=== PATIENT | male | born 1940 | race Caucasian/White ===

== ENCOUNTER 2017-12-27 12:48 | Day surgery (SDC) | payer OTHER, BC ==
[2017-12-26 12:59] LABS: Urine Appearance CLEAR; Urine Blood NEGATIVE (NEG); Urine Color DK YELLOW; Urine Glucose NEGATIVE (NEG); Urine Protein TRACE (NEG)
[2017-12-26 13:11] LABS: Potassium 4.3 mEq/L (3.6-5.0)
[2017-12-26 13:38] LABS: Protime INR 0.99
[2017-12-26 13:42] LABS: Urine Bilirubin 1+ (NEG); Urine Microscopic Reflex ORDER UMIC
[2017-12-26 13:43] LABS: Urine Bacteria <20 /HPF (NONE SEEN); Urine RBC <5 /HPF (NONE SEEN)
[2017-12-26 13:44] LABS: Urine Culture Reflex Order NOT NEEDED; Urine Mucus 2+ /HPF (NONE SEEN)
--- NOTE | 2017-12-26 13:49 | RAD REPORT ---
EXAM DESCRIPTION: RAD - Chest Pa And Lat (2 Views) - 12/26/2017 1:38 pm CLINICAL HISTORY: Shortness of breath COMPARISON: 06/29/2015 FINDINGS: Diffuse COPD pattern is noted. Fullness in the left hilar region appears unchanged. The he art is normal in size. No displaced fractures. IMPRESSION: Prominent COPD.
[2017-12-26 14:02] LABS: Absolute Lymphocytes (CBC) 2.8 K/uL (0.7-4.9); Absolute Monocytes 1.1 K/uL (0.1-1.3); Absolute Neutrophil 6.3 K/uL (1.8-8.0); Basophils % 0.7 % (0-1.3); Eosinophils % 1.7 % (0-4.4); Hematocrit 48.2 % (39.6-49.0); Lymphocytes % 26.5 % (15.3-44.8); MCH 31.7 pg (27.0-35.0); MCV 96.2 fL (80-100); MPV 8.3 fL (7.6-11.3); Monocytes % 10.8 % (3.3-12.3); RBC Red Blood Cell Count 5.01 M/uL (4.33-5.43)
[2017-12-27] MEDS ORDERED: Ringers Lactate 1,000 ML IV ONE ×2 (12:51→15:59)
[2017-12-27] MEDS ORDERED: GENTAMICIN 80 MG/100 ML BAG 80 MG/100 ML BAG IV ONE (12:53)
[2017-12-27] MEDS ORDERED: mitoMYcin 40 MG in WATER FOR INJ,STERILE 50 ML IV ONE (14:00)
[2017-12-27] MEDS ORDERED: FENTANYL CITR 100 MCG/2 ML ONE ×2 (15:07→16:09)
[2017-12-27] MEDS ORDERED: LIDOCAINE 2% MPF 5 ML VIAL ONE (15:07)
[2017-12-27] MEDS ORDERED: PROPOFOL 200 MG/20 ML VIAL IV ONE (15:07)
[2017-12-27 16:43] VITALS: TEMP 97.5
[2017-12-27] MEDS: MIDAZOLAM HCL 2 MG/2 ML INJ ONE ×2 (16:48→16:54)
[2017-12-27] MEDS ORDERED: MIDAZOLAM HCL 2 MG/2 ML INJ ONE (16:48)
[2017-12-27] MEDS ORDERED: OXYBUTYNIN CHLORIDE 5 MG TAB ONE (17:14)
[2017-12-27 17:41] VITALS: O2SAT 96
[2017-12-27 17:50] VITALS: BP 150/82
== END 2017-12-27 18:38 | disposition home or self-care (01) ==
LOC: OR 12:48
PROVIDERS: ATTEND Urology
PROC: 3E0K8GC Introduction of Other Therapeutic Substance into Genitourinary Tract, Via Natural or Artificial Opening Endoscopic (ICD-10-PCS; 2017-12-27)
PROC: 0TBB8ZX Excision of Bladder, Via Natural or Artificial Opening Endoscopic, Diagnostic (ICD-10-PCS; principal; 2017-12-27 14:00)
DX: C67.9 Malignant neoplasm of bladder, unspecified (principal); I10 Essential (primary) hypertension; E78.5 Hyperlipidemia, unspecified; E78.6 Lipoprotein deficiency; J43.9 Emphysema, unspecified; J44.9 Chronic obstructive pulmonary disease, unspecified; F17.210 Nicotine dependence, cigarettes, uncomplicated; Z82.3 Family history of stroke
CPT/HCPCS: 36415; 51720; 52240; 71046; 80048; 85025; 85610; 85730; 86850; 86900; 86901; 87086; 87088; 88305; 88307; J1580; J2250 ×2; J3010 ×2; J9280; 81003; 81015

== ENCOUNTER 2018-05-14 14:23 | Observation (INO) | payer OTHER, BC ==
[2018-05-14] MEDS ORDERED: ALBUTEROL 2.5 MG/3 ML NEB SOL ONE (15:32)
[2018-05-14 15:39] LABS: Absolute Lymphocytes (CBC) 0.5 K/uL (0.7-4.9); Absolute Monocytes 0.6 K/uL (0.1-1.3); Absolute Neutrophil 2.4 K/uL (1.8-8.0); Basophils % 1.4 % (0-1.3); Eosinophils % 3.9 % (0-4.4); Lymphocytes % 12.8 % (15.3-44.8); MCH 33.2 pg (27.0-35.0); MCV 97.5 fL (80-100); MPV 7.6 fL (7.6-11.3); Monocytes % 16.3 % (3.3-12.3); RBC Red Blood Cell Count 4.21 M/uL (4.33-5.43)
--- NOTE | 2018-05-14 15:41 | RAD REPORT ---
EXAM DESCRIPTION: RAD - Chest Single View - 05/14/2018 3:36 pm CLINICAL HISTORY: SOB Chest pain. COMPARISON: Chest Pa And Lat (2 Views) dated 12/26/2017; CHEST PA AND LAT 2 VIEW dated 06/29/2015; CHES T PA AND LAT 2 VIEW dated 03/19/2014; CHEST PA AND LAT 2 VIEW dated 05/08/2013 FINDINGS: Portable technique limits examination quality. Prominent emphysematous changes are present throughout the lungs. The heart is normal in size. No dis placed fractures. IMPRESSION: COPD.
[2018-05-14 16:04] LABS: Protime INR 1.03
[2018-05-14 16:08] LABS: ALT/SGPT 16 U/L (12-78); AST/SGOT 13 U/L (15-37); Albumin 3.2 g/dL (3.4-5.0); Alkaline Phosphatase 64 U/L (45-117); BUN Blood Urea Nitrogen 13 mg/dL (7-18); Bicarbonate 26 mmol/L (21-32); Bilirubin Direct 0.2 mg/dL (0-0.2); Bilirubin Total 0.6 mg/dL (0.2-1.0); Creatine Phosphokinase 32 U/L (39-308); Glucose Level 93 mg/dL (74-106); Lipase 77 U/L (73-393); NT PRO-BNP 253 pg/mL (<450); Potassium 4.1 mmol/L (3.5-5.1); Protein, Total 6.6 g/dL (6.4-8.2); Sodium Level 135 mmol/L (136-145); Troponin (Emerg Dept Use Only) < 0.02 ng/mL (0.0-0.045)
[2018-05-14 17:08] LABS: Urine Blood NEGATIVE (NEG); Urine Glucose NEGATIVE (NEG); Urine Protein TRACE (NEG); Urine Specific Gravity 1.015 (1.005-1.030); Urine pH 6.5 (5.0-7.0)
[2018-05-14] MEDS ORDERED: NA CHLORIDE 0.9% 500 ML ONE (17:19)
[2018-05-14 17:27] LABS: Urine Bacteria <20 /HPF (NONE SEEN); Urine Culture Reflex Order NOT NEEDED; Urine Mucus 2+ /HPF (NONE SEEN); Urine RBC <5 /HPF (NONE SEEN); Urine Sperm PRESENT (NONE SEEN)
[2018-05-14] MEDS ORDERED: ASPIRIN 81 MG CHEWABLE TABLET ONE (17:28)
[2018-05-14] MEDS ORDERED: METOPROLOL TAR 50 MG TAB ONE (17:39)
--- NOTE | 2018-05-14 17:56 | ER ---
Nurse's Notes [facility] Name: Roly Clifton Age: 77 yrs Sex: Male : 1940 Arrival Date: 05/14/2018 Time: 14:26 Bed 6 Private MD: Diagnosis: Shortness of Breath;Atrial fibrillation w/ RVR Presentation: 05/14 14:38 Presenting complaint: Patient states: was sent by Dr. Weaver for COPD exacerbation, iw pt has had difficulty breathing, and was in Afib RVR with no hx, pt has hx of lung cancer, on chemo and radiation. Transition of care: patient was not received from another setting of care. Onset of symptoms was May 14, 2018. Risk Assessment: Do you want to hurt yourself or someone else? Patient reports no desire to harm self or others. Initial Sepsis Screen: Does the patient meet any 2 criteria? No. Patient's initial sepsis screen is negative. Does the patient have a suspected source of infection? No. Patient's initial sepsis screen is negative. Care prior to arrival: None. 14:38 Method Of Arrival: Wheelchair iw 14:38 Acuity: MASON 2 iw 20:11 Note pt refused oxygen for transport to [facility]. pt ambulated to restroom in [facility] with no ak1 assistance, steady gait and no resp distress noted. family was at bedside with pt. Triage Assessment: 19:36 General: Appears in no apparent distress. Respiratory: Reports shortness of breath ak1 Onset: The symptoms/episode began/occurred at an unknown time. the patient has mild shortness of breath. Historical: - Allergies: 14:44 NKA; iw - Home Meds: 14:44 2 inhalers [Active]; iw - PMHx: 14:44 lung cancer; COPD; bladder cancer; iw - PSHx: 14:44 bladder cancer removal; iw - Immunization history:: Adult Immunizations. - Social history:: Smoking status: Patient uses tobacco products, denies chronic smoking, but will smoke occasionally. - Ebola Screening: : Patient negative for fever greater than or equal to 101.5 degrees Fahrenheit, and additional compatible Ebola Virus Disease symptoms Patient denies exposure to infectious person Patient denies travel to an Ebola-affected area in the 21 days before illness onset No symptoms or risks identified at this time. - Family history:: not pertinent. - Hospitalizations: : No recent hospitalization is reported. Screenin:34 Abuse screen: Denies threats or abuse. Denies injuries from another. Nutritional ak1 screening: No deficits noted. Tuberculosis screening: No symptoms or risk factors identified. Fall Risk None identified. Assessment: 14:50 General: Appears uncomfortable, Behavior is calm, cooperative, Denies fever, feeling ss ill, fatigue, chills. Pain: Denies pain. Neuro: Level of Consciousness is awake, alert, obeys commands, Oriented to person, place, time, situation, Brick [employer] Tile Making Machine Operator are equal bilaterally Speech is normal, Facial symmetry appears normal. Respiratory: Reports shortness of breath at rest, but worst on exertion x "a few days" Airway is patent Respiratory effort is even, pursed lip, Respiratory pattern is regular, symmetrical, placed patient on 2L O2 VIA NC for comfort. Breath sounds are clear in right upper lobe, left upper lobe, left posterior upper lobe, right posterior upper lobe and right posterior middle lobe Breath sounds are diminished in left posterior lower lobe and right posterior lower lobe. GI: Patient currently denies abdominal pain, diarrhea, nausea, vomiting. EENT: Nares are clear Oral mucosa is moist. Derm: Skin is intact, is thin, Skin is dry, Skin is normal. Musculoskeletal: No signs and/or symptoms reported regarding the musculoskeletal system. Circulation, motion, and sensation intact. Range of motion: intact in all extremities. 15:45 Reassessment: Patient appears in no apparent distress at this time. Pt states, "this ss oxygen is irritating me, take it off." DC'd NC as requested by patient. Daughter remains at bedside Patient states feeling better. Patient states symptoms have improved. 17:23 Reassessment: Patient appears in no apparent distress at this time. patient reports he ss is feeling much better, and even thought Dr. Licea is wanting to admit him overnight for inpatient admission, patient still insist that he wants to go home AMA. Pt verbalizes understanding risks of leaving AMA. Daughter at bedside who states that she will talk to patient. NS bolus infusing at this time and Dr. Licea reports that he will attempt to call Dr. Shirley to schedule appointment at least for patient. 18:00 Reassessment: After discussing need for admission with daughter, patient agrees to stay.ss 19:34 Reassessment: pt refuses to keep oxygen on. pt eating at bedside. pt and family ak1 informed of bed assignment and wait for transfer upstairs. no resp distress noted at this time. will continue to monitor. . General: Appears in no apparent distress. Behavior is agitated. Pain: Denies pain. Neuro: Level of Consciousness is awake, alert, obeys commands, Oriented to person, place, time, situation, Brick And Tile Making Machine Operator are equal bilaterally Moves all extremities. Gait is steady, Speech is normal. Cardiovascular: Rhythm is regular. Respiratory: Airway is patent Respiratory effort is even, unlabored, Breath sounds are clear. GI: No signs and/or symptoms were reported involving the gastrointestinal system. : No signs and/or symptoms were reported regarding the genitourinary system. EENT: No signs and/or symptoms were reported regarding the EENT system. Derm: No signs and/or symptoms reported regarding the dermatologic system. Musculoskeletal: No signs and/or symptoms reported regarding the musculoskeletal system. Vital Signs: 14:41 BP 95 / 79; Pulse 118; Resp 24 S; Pulse Ox 98% on R/A; Weight 85.73 kg; Height 6 ft. 3 iw in. (190.50 cm); Pain 3/10; 16:07 BP 110 / 82; Pulse 83; Resp 22; Pulse Ox 99% ; sv 16:58 BP 106 / 94; Pulse 107; Resp 24; Pulse Ox 100% ; sv 17:23 Temp 98.0(O); ss 19:56 BP 109 / 71; Pulse 77; Resp 18 S; Pulse Ox 99% on R/A; bb 14:41 Body Mass Index 23.62 (85.73 kg, 190.50 cm) ED Course: 14:26 Patient arrived in ED. iw 14:33 EKG done, by internetworking technician. reviewed by Thierry Song MD. at1 14:34 Missed attempt(s): 20 gauge in right forearm. em1 14:40 Tigre Licea MD is Attending Physician. wa 14:41 Triage completed. iw 14:41 Arm band placed on. iw 15:21 XRAY CXR (1 view) In Process Unspecified. EDMS 15:25 Nicolette Go, BECKIE is Primary Nurse. ss 17:54 Tigre Licea MD is Hospitalizing Provider. wa 17:54 Aida Grace MD is Hospitalizing Provider. wa 19:36 Patient has correct armband on for positive identification. Placed in gown. Bed in low ak1 position. Call light in reach. Side rails up X 1. Adult w/ patient. human resources professional on. Pulse ox on. NIBP on. 19:46 No provider procedures requiring assistance completed. Patient admitted, IV remains in ak1 place. Administered Medications: 15:27 Drug: Albuterol 1.25 mg Route: Inhalation; 17:19 Drug: NS 0.9% 500 ml Route: IV; Rate: bolus; Site: left forearm; ss 19:37 Follow up: IV Status: Completed infusion ak1 17:23 Drug: Aspirin Chewable Tablet 324 mg Route: PO; ss 19:37 Follow up: Response: No adverse reaction ak1 18:08 Drug: Metoprolol TARTRATE (Lopressor) 50 mg {Note: Dr. Licea notified of VS 101/62 HR ss 112, okay to go ahead and give medication.} Route: PO; 19:37 Follow up: Response: No adverse reaction ak1 Outcome: 17:55 Decision to Hospitalize by Provider. wa 19:46 Condition: stable ak1 19:46 Instructed on the need for admit. 19:56 Admitted to Tele accompanied by tech, via stretcher, room 406, with chart, Report bb called to Lizy BUTTS 20:12 Patient left the ED. ak1 Signatures: Dispatcher [employer] Annelise Chacko, RN Jackie Gunter RN Tresa Langley, Brown Gusman RN em1 Nicolette Go RN RN Bonnie Otto, dray truck driver EKG Tat1 Ariana Barragan RN RN ak1 Tigre Licea MD MD ak
--- NOTE | 2018-05-14 17:56 | EDPHYS ---
Physician Documentation [facility] Name: Roly Clifton Age: 77 yrs Sex: Male : 1940 Arrival Date: 05/14/2018 Time: 14:26 Bed 6 Private MD: ED Physician Tigre Licea HPI: 05/14 17:23 This 77 yrs old Male presents to ER via Wheelchair with complaints of wa Breathing Difficulty. 17:23 The patient has shortness of breath at rest. Onset: The symptoms/episode began/occurred wa 2 day(s) ago. Duration: The symptoms are continuous, and are steadily getting worse. The patient's shortness of breath is aggravated by exertion, is alleviated by nothing. Associated signs and symptoms: Pertinent negatives: chest pain, productive cough, hemoptysis, loss of consciousness. Severity of symptoms: At their worst the symptoms were moderate in the emergency department the symptoms are unchanged. The patient has experienced similar episodes in the past, several times. The patient has been recently seen by a physician: his oncologist. h/o COPD and lung CA. seen by his oncologist today. c/o worsening SOB. noted in Afib. no h/o afib in the past. Historical: - Allergies: 14:44 NKA; iw - Home Meds: 14:44 2 inhalers [Active]; iw - PMHx: 14:44 lung cancer; COPD; bladder cancer; iw - PSHx: 14:44 bladder cancer removal; iw - Immunization history:: Adult Immunizations. - Social history:: Smoking status: Patient uses tobacco products, denies chronic smoking, but will smoke occasionally. - Ebola Screening: : Patient negative for fever greater than or equal to 101.5 degrees Fahrenheit, and additional compatible Ebola Virus Disease symptoms Patient denies exposure to infectious person Patient denies travel to an Ebola-affected area in the 21 days before illness onset No symptoms or risks identified at this time. - Family history:: not pertinent. - Hospitalizations: : No recent hospitalization is reported. ROS: 17:25 Constitutional: Negative for fever, chills, and weight loss, Eyes: Negative for injury, wa pain, redness, and discharge, ENT: Negative for injury, pain, and discharge, Neck: Negative for injury, pain, and swelling, Abdomen/GI: Negative for abdominal pain, nausea, vomiting, diarrhea, and constipation, Back: Negative for injury and pain, : Negative for injury, bleeding, discharge, and swelling, MS/Extremity: Negative for injury and deformity, Skin: Negative for injury, rash, and discoloration, Neuro: Negative for headache, weakness, numbness, tingling, and seizure, Psych: Negative for depression, anxiety, suicide ideation, homicidal ideation, and hallucinations. 17:25 Cardiovascular: Negative for chest pain, edema, orthopnea, palpitations, paroxysmal nocturnal dyspnea. 17:25 Respiratory: Positive for shortness of breath, on exertion. wheezing, Negative for cough, hemoptysis. Exam: 17:25 Constitutional: This is a well developed, well nourished patient who is awake, alert, wa and in no acute distress. Head/Face: Normocephalic, atraumatic. Eyes: Pupils equal round and reactive to light, extra-ocular motions intact. Lids and lashes normal. Conjunctiva and sclera are non-icteric and not injected. Cornea within normal limits. Periorbital areas with no swelling, redness, or edema. ENT: Nares patent. No nasal discharge, no septal abnormalities noted. Tympanic membranes are normal and external auditory canals are clear. Oropharynx with no redness, swelling, or masses, exudates, or evidence of obstruction, uvula midline. Mucous membranes moist. Neck: Trachea midline, no thyromegaly or masses palpated, and no cervical lymphadenopathy. Supple, full range of motion without nuchal rigidity, or vertebral point tenderness. No Meningismus. Chest/axilla: Normal chest wall appearance and motion. Nontender with no deformity. No lesions are appreciated. Abdomen/GI: Soft, non-tender, with normal bowel sounds. No distension or tympany. No guarding or rebound. No evidence of tenderness throughout. Back: No spinal tenderness. No costovertebral tenderness. Full range of motion. Skin: Warm, dry with normal turgor. Normal color with no rashes, no lesions, and no evidence of cellulitis. MS/ Extremity: Pulses equal, no cyanosis. Neurovascular intact. Full, normal range of motion. Neuro: Awake and alert, GCS 15, oriented to person, place, time, and situation. Cranial nerves II-XII grossly intact. Motor strength 5/5 in all extremities. Sensory grossly intact. Cerebellar exam normal. Normal gait. Psych: Awake, alert, with orientation to person, place and time. Behavior, mood, and affect are within normal limits. 17:25 Cardiovascular: Rate: tachycardic, Rhythm: irregularly irregular, Pulses: no pulse deficits are appreciated, Heart sounds: normal, Edema: is not appreciated, JVD: is not appreciated. 17:25 ECG was reviewed by the Attending Physician. 17:25 Respiratory: the patient does not display signs of respiratory distress, Respirations: pursed lip breathing, Breath sounds: wheezing: inspiratory expiratory is heard diffusely, Respiratory rate: tachypneic Vital Signs: 14:41 BP 95 / 79; Pulse 118; Resp 24 S; Pulse Ox 98% on R/A; Weight 85.73 kg; Height 6 ft. 3 iw in. (190.50 cm); Pain 3/10; 16:07 BP 110 / 82; Pulse 83; Resp 22; Pulse Ox 99% ; sv 16:58 BP 106 / 94; Pulse 107; Resp 24; Pulse Ox 100% ; sv 17:23 Temp 98.0(O); ss 19:56 BP 109 / 71; Pulse 77; Resp 18 S; Pulse Ox 99% on R/A; bb 14:41 Body Mass Index 23.62 (85.73 kg, 190.50 cm) iw MDM: 14:40 Patient medically screened. wa 17:27 Differential diagnosis: Anemia Anxiety Reaction Bronchitis CHF exacerbation, Chronic wa Obstructive Pulmonary Disease Myocardial Infarction pneumonia, pulmonary edema, Unstable Angina a fib RVR. COPD exaxcerbation. will work up. will consult cardiology. 17:28 Data reviewed: vital signs, nurses notes, lab test result(s), EKG, radiologic studies. wa Test interpretation: by ED physician or midlevel provider: EKG: HR 113. A fib RVR. 17:29 Test interpretation: by ED physician or midlevel provider:. wa 17:30 Test interpretation: by ED physician or midlevel provider: mild leukopenia. CXR noted wa for COPD.. Response to treatment: the patient's symptoms have markedly improved after treatment, breathing improved with neb. HR still 99-115, A fib RVR. will try mild hydration via IV. metoprolol. ASA. need admit for cardiology eval. pt adamant and would rather sign AMA. daughter at bedside. Risks and benefits of AMA explained and accepted by this pt with capacity, and as a result, I will. 17:53 Physician consultation: Aida Grace MD. Admission orders: after a detailed discussion az of the patient's condition and case, the admit orders are written by me. ED course: family talked pt into admission. will admit. will consult cardiology. 17:56 Test interpretation: by ED physician or midlevel provider: EKG: HR 113. noted flutter wa with variable block. 05/14 14:59 Order name: Blood Culture Adult (2) 05/14 14:59 Order name: BMP; Complete Time: 17:05/14 14:59 Order name: CBC with Diff; Complete Time: 15:51 05/14 14:59 Order name: CPK; Complete Time: :05/14 14:59 Order name: Hepatic Function; Complete Time: 17:05/14 14:59 Order name: Lipase; Complete Time: 17:05/14 14:59 Order name: XRAY CXR (1 view); Complete Time: 15:51 05/14 14:59 Order name: Magnesium; Complete Time: 17:05/14 14:59 Order name: NT PRO-BNP; Complete Time: 17:05/14 14:59 Order name: PT-INR; Complete Time: 17:05/14 14:59 Order name: Ptt, Activated; Complete Time: 17:05/14 14:59 Order name: Troponin (emerg Dept Use Only); Complete Time: 17:05/14 16:44 Order name: Urine Microscopic Only; Complete Time: 17:05/14 16:45 Order name: Urine Dipstick--Ancillary (enter results); Complete Time: 17: 05/14 14:59 Order name: EKG; Complete Time: 15:00 05/14 14:59 Order name: Cardiac monitoring; Complete Time: 16:05/14 14:59 Order name: EKG - Nurse/Tech; Complete Time: 16:28 05/14 14:59 Order name: IV Saline Lock; Complete Time: 16:05/14 14:59 Order name: Labs collected and sent; Complete Time: 16:05/14 14:59 Order name: O2 Per Protocol; Complete Time: 16:29 wa 05/14 14:59 Order name: O2 Sat Monitoring; Complete Time: 16:29 az 05/14 14:59 Order name: Urine Dipstick-Ancillary (obtain specimen); Complete Time: 17:11 az Administered Medications: 15:27 Drug: Albuterol 1.25 mg Route: Inhalation; sv 17:19 Drug: NS 0.9% 500 ml Route: IV; Rate: bolus; Site: left forearm; ss 19:37 Follow up: IV Status: Completed infusion ak1 17:23 Drug: Aspirin Chewable Tablet 324 mg Route: PO; ss 19:37 Follow up: Response: No adverse reaction ak1 18:08 Drug: Metoprolol TARTRATE (Lopressor) 50 mg {Note: Dr. Licea notified of VS 101/62 HR ss 112, okay to go ahead and give medication.} Route: PO; 19:37 Follow up: Response: No adverse reaction ak1 Disposition: 05/14/18 17:55 Hospitalization ordered by Aida Grace for Inpatient Admission. Preliminary diagnosis are Shortness of Breath, Atrial fibrillation w/ RVR. - Bed requested for Telemetry/MedSurg (Inpatient). - Status is Inpatient Admission. ak1 - Condition is Stable. - Problem is new. - Symptoms have improved. UTI on Admission? No Signatures: Dispatcher [employer] EDMS Annelise Torres, RN Kandi Martínez RN BECKIE Tresa Velasquez, BECKIE BUTTS Nicolette Go RN RN ss Krenek, Amber, RN RN [facility] Tigre Licea MD MD az Corrections: (The following items were deleted from the chart) 19:09 17:55 Hospitalization Ordered by Aida Grace MD for Inpatient Admission. Preliminary diagnosis is Shortness of Breath; Atrial fibrillation w/ RVR. Bed requested for Telemetry/MedSurg (Inpatient). Status is Inpatient Admission. Condition is Stable. Problem is new. Symptoms have improved. UTI on Admission? No. az 20:12 19:09 05/14/2018 17:55 Hospitalization Ordered by Aida Grace MD for Inpatient ak1 Admission. Preliminary diagnosis is Shortness of Breath; Atrial fibrillation w/ RVR. Bed requested for Telemetry/MedSurg (Inpatient). Status is Inpatient Admission. Condition is Stable. Problem is new. Symptoms have improved. UTI on Admission? No. dw
[2018-05-14] MEDS ORDERED: IPRATROPIUM BROM 0.5MG/2.5ML NEB PRN (18:23)
[2018-05-14] MEDS ORDERED: ACETAMINOPHEN 500 MG TAB PO PRN (18:23)
[2018-05-14] MEDS ORDERED: LEVALBUTEROL 0.63 MG/3 ML NEB NEB PRN (18:23)
[2018-05-14] MEDS ORDERED: METOPROLOL TARTRATE 5 MG/5 ML INJ IV PRN (18:23)
--- NOTE | 2018-05-14 19:24 | EKG ---
Test Date: 2018-05-14 Test Time: 14:27:57 District Traffic Chief: LASHANDA MEASUREMENT RESULTS: Intervals: Rate: 113 [place]: QRSD: 98 QT: 302 QTc: 414 [place]: P: IL: QRS: -44 T: 70 INTERPRETIVE STATEMENTS: Atrial flutter with variable AV block Left axis deviation Incomplete right bundle branch block Abnormal ECG Compared to ECG 12/07/2017 16:47:27 Sinus rhythm no longer present Atrial premature complex(es) no longer present Electronically Signed On 05-14-18 19:22:43 CDT by Norbert Jose
[2018-05-14 21:08] VITALS: BMI 21.8
[2018-05-14] MEDS: ENOXAPARIN 40 MG/0.4 ML SQ SCH (21:22)
[2018-05-14] MEDS: NA CHLORIDE 0.9% 1,000 ML IV SCH (21:22)
[2018-05-14] MEDS: ONDANSETRON 4 MG/2 ML VIAL IV PRN (21:23)
--- NOTE | 2018-05-15 00:06 | P.HP ---
Certification for Inpatient Patient admitted to: Inpatient With expected LOS: >2 Midnights Practitioner: I am a practitioner with admitting privileges, knowledge of patient current condition, hospital course, and medical plan of care. Services: Services provided to patient in accordance with Admission requirements found in Title 42 Section 412.3 of the Code of Federal Regulations Patient History Date of Service: 05/15/18 Reason for admission: The onset atrial fibrillation History of Present Illness: Mr Clifton is a 77-year-old male with history of COPD, lung cancer, hypertension , wound note is increase in shortness of breath since 3 days ago. He went to see his oncologist, Dr Tompkins, who found him to be on atrial fibrillation which is a new diagnosis for the patient. Mr. Clifton then was referred to ER for farther evaluation. He denied any fever or chills. He also denied chest pain, palpitation or dizziness. At arrival his blood pressure was 95/79, HR 118 bpm, O2 sat 98% on RA, T 98* F. EKG shows atrial flutter with variable AV block, with incomplete right bundle branch block. At my encounter the patient was significantly nauseated, symptom which started today. Allergies No Known Allergies Allergy (Verified 12/26/17 13:10) Home medications list reviewed: Yes Home Medications: Albuterol Inhaler [Ventolin Inhaler] 2 puff IH BID 12/26/17 - Past Medical/Surgical History Diabetic: No -: COPD -: Lung Cancer -: Bladder Cancer -: Spot in the Brain -: Bladder tumor removal - Family History Father -: Hypertension, Stroke - Social History Smoking Status: Current some day smoker Alcohol use: No CD- Drugs: No Caffeine use: Yes Place of Residence: Home Review of Systems 10-point ROS is otherwise unremarkable Physical Examination - Vital Signs Temperature: 97.3 F Blood Pressure: 118/69 Pulse: 76 Respirations: 20 Pulse Ox (%): 98 - Physical Exam General: Alert, In no apparent distress HEENT: Atraumatic, PERRLA, Mucous membr. moist/pink, EOMI, Sclerae nonicteric Neck: Supple, 2+ carotid pulse no bruit, No LAD, Without JVD or thyroid abnormality Respiratory: Diminished, Expiratory wheezes Cardiovascular: Normal S1 S2, Irregular heart rate/rhythm Gastrointestinal: Normal bowel sounds, No tenderness Musculoskeletal: No tenderness Integumentary: No rashes Neurological: Normal speech, Normal strength at 5/5 x4 extr, Normal tone, Normal affect Lymphatics: No axilla or inguinal lymphadenopathy - Studies Laboratory Data (last 24 hrs) 05/14/18 15:20: PT 12.1, INR 1.03, APTT 24.9 05/14/18 15:20: WBC 3.7 L, Hgb 14.0, Hct 41.0, Plt Count 213 05/14/18 15:20: Sodium 135 L, Potassium 4.1, BUN 13, Creatinine 0.80, Glucose 93 , Magnesium 2.0, Total Bilirubin 0.6, AST 13 L, ALT 16, Alkaline Phosphatase 64 , Lipase 77 Assessment and Plan - Plan Assessment: 1. New onset atrial flutter 2. COPD 3. Lung cancer Plan: Will admit the patient for rate control, will continue with beta-blockers, will order echocardiogram, consult Cardiology. He will need anticoagulation upon discharge. - Advance Directives Does patient have a Living Will: Yes Does patient have a Durable POA for Healthcare: Yes - Code Status/Comfort Care Code Status Assessed: Yes Code Status: Full Code
[2018-05-15] MEDS: ONDANSETRON 4 MG/2 ML VIAL IV PRN (02:13)
[2018-05-15] MEDS ORDERED: PANTOPRAZOLE 40MG TABLET PO ONE (04:04)
[2018-05-15] MEDS: NA CHLORIDE 0.9% 1,000 ML IV SCH (04:10)
[2018-05-15] MEDS ORDERED: PROMETHAZINE 25 MG/ML VIAL IV PRN (04:22)
[2018-05-15] MEDS: CALCIUM CARBONATE CHEW 500MG TAB PO PRN ×5 (04:30→10:29)
[2018-05-15 04:41] LABS: Absolute Lymphocytes (CBC) 0.4 K/uL (0.7-4.9); Absolute Monocytes 0.6 K/uL (0.1-1.3); Absolute Neutrophil 2.2 K/uL (1.8-8.0); Basophils % 1.4 % (0-1.3); Eosinophils % 4.2 % (0-4.4); Hematocrit 38.4 % (39.6-49.0); Lymphocytes % 12.9 % (15.3-44.8); MCV 97.7 fL (80-100); MPV 7.9 fL (7.6-11.3); Monocytes % 16.4 % (3.3-12.3); RBC Red Blood Cell Count 3.94 M/uL (4.33-5.43)
[2018-05-15 05:04] LABS: ALT/SGPT 15 U/L (12-78); AST/SGOT 11 U/L (15-37); Albumin 2.9 g/dL (3.4-5.0); Alkaline Phosphatase 59 U/L (45-117); BUN Blood Urea Nitrogen 13 mg/dL (7-18); Bicarbonate 29 mmol/L (21-32); Bilirubin Total 0.4 mg/dL (0.2-1.0); Glucose Level 91 mg/dL (74-106); Magnesium 1.9 mg/dL (1.8-2.4); Phosphorus 2.8 mg/dL (2.5-4.9); Potassium 4.3 mmol/L (3.5-5.1); Protein, Total 6.1 g/dL (6.4-8.2); Sodium Level 137 mmol/L (136-145)
[2018-05-15 05:59] LABS: Blood Morphology Comment NOT SEEN (NOT SEEN); Platelet Estimate ADEQ; Urine White Blood Cell Casts OK
[2018-05-15] MEDS: ENOXAPARIN 40 MG/0.4 ML SQ SCH (09:24)
[2018-05-15] MEDS ORDERED: SODIUM CHLORIDE 0.9% 10ML INJ IV PRN (09:28)
[2018-05-15] MEDS ORDERED: BENZONATATE 100 MG CAP PO PRN (10:19)
[2018-05-15] MEDS ORDERED: CALCIUM CARBONATE CHEW 500MG TAB PO PRN (10:32)
--- NOTE | 2018-05-15 11:02 | RAD REPORT ---
EXAM DESCRIPTION: CT - Chest For Pe Angio - 05/15/2018 10:44 am CLINICAL HISTORY: Shortness of breath COMPARISON: October 2017 TECHNIQUE: Dynamically enhanced axial 3 mm thick images of the chest were obtained during administra tion of <100> mL Isovue 370 IV contrast. Coronal and oblique reconstruction images were generated and reviewed. Exam utilizes a protocol for optimal evaluation of pulmonary arterial tree. Maximum intensity projections 3D imaging was utilized All CT scans are performed using dose optimization technique as appropriate and may include automated exposure control or mA/KV adjustment according to patient size. FINDINGS: A pulmonary embolus is not seen. A thoracic aortic aneurysm is not noted. A pleural effusion is not seen. A pericardial effusion is not seen. The previously described spiculated 2.4 centimeter mass within the left upper lobe has mostly resolve d. COPD is again demonstrated No significant mediastinal or hilar lymphadenopathy is displayed IMPRESSION: Negative for a pulmonary embolism.
[2018-05-15] MEDS: METOPROLOL TAR 50 MG TAB PO SCH ×2 (15:23→23:03)
--- NOTE | 2018-05-15 15:42 | ECHO ---
HEIGHT: 6 ft 3 in WEIGHT: 174 lb 9.6 oz DATE OF STUDY: 05/15/[address]: Norbert Jose MD 2-DIMENSIONAL: YES M.MODE: YES DOPPLER: YES COLOR FLOW: YES TDS: YES PORTABLE: NO DEFINITY: NO BUBBLE STUDY: NO DIAGNOSIS: ATRIAL FIBRILLATION CARDIAC HISTORY: CATHERIZATION: NO SURGERY: NO PROSTHETIC VALVE: NO PACEMAKER: NO MEASUREMENTS (cm) DIASTOLIC (NORMALS) SYSTOLIC (NORMALS) IVSd 1.5 (0.6-1.2) LA Diam 4.5 (1.9-4.0) LVEF 52% LVIDd 3.8 (3.5-5.7) LVIDs 2.8 (2.0-3.5) %FS 26% LVPWd 1.4 (0.6-1.2) Ao Diam 2.8 (2.0-3.7) 2 DIMENSIONAL ASSESSMENT: RIGHT ATRIUM: NORMAL LEFT ATRIUM: DILATED RIGHT VENTRICLE: NORMAL LEFT VENTRICLE: NORMAL TRICUSPID VALVE: NORMAL MITRAL VALVE: NORMAL PULMONIC VALVE: NORMAL AORTIC VALVE: NORMAL PERICARDIAL EFFUSION: NONE AORTIC ROOT: NORMAL LEFT VENTRICULAR WALL MOTION: NORMAL DOPPLER/COLOR FLOW: MILD TRICUSPID REGURGITATION. COMMENTS: TECHNICALLY DIFFICULT STUDY. GROSSLY NORMAL LEFT VENTRICULAR EJECTION FRACTION AND SIZE. DILATED LEFT ATRIUM. NO THROMBUS. TECHNOLOGIST: Ashwin PECK
--- NOTE | 2018-05-15 16:38 | P.PN ---
Subjective Date of Service: 05/15/18 Primary Care Provider: Dr. Garcia; Oncology-Dr. Weaver Chief Complaint: onset atrial fibrillation Subjective: Improving Physical Examination - Vital Signs Temperature: 99.4 F Blood Pressure: 157/71 Pulse: 102 Respirations: 20 Pulse Ox (%): 96 - Physical Exam General: Alert, In no apparent distress, Oriented x3, Cooperative HEENT: Atraumatic Neck: Supple Respiratory: Clear to auscultation bilaterally, Normal air movement Cardiovascular: Irregular heart rate/rhythm (Atrial fibrillation) Gastrointestinal: Normal bowel sounds, Soft and benign, Non-distended, No tenderness, No masses, No rebound, No guarding Musculoskeletal: No erythema, No tenderness, No warmth Neurological: Normal speech, Normal strength at 5/5 x4 extr, Normal tone, Normal affect - Studies Medications List Reviewed: Yes Assessment & Plan Discharge Plan: Home Plan to discharge in: 48 Hours Physician Review Additional Text: Impression: Shortness of breath likely COPD exacerbation New onset atrial fibrillation History lung cancer Plan: Will start COPD medication. Patient seemed to be is responding well. CT scan reviewed. COPD changes noted. 2.4 cm mass to the left upper lobe previously seen no longer present. Will discuss with patient. Patient with new onset atrial fibrillation. Cardiology consulted. Echocardiogram unremarkable. Will start beta-tate therapy. Await further recommendations from cardiology. Patient on anti coagulation therapy. Patient will likely need chronic anti coagulation therapy discharge. Will reassess tomorrow. Time Spent Managing Pts Care (In Minutes): 55
[2018-05-15] MEDS: ARFORMOTEROL TARTRATE 15 MCG/2 ML VIAL.NEB NEB SCH (19:42)
[2018-05-15] MEDS: predniSONE 20 MG TAB PO SCH (21:06)
[2018-05-15] MEDS: PANTOPRAZOLE 40 MG INJ IVP SCH (21:06)
[2018-05-15] MEDS: ENOXAPARIN 80 MG/0.8 ML SQ SCH (21:06)
[2018-05-16 04:41] LABS: Absolute Lymphocytes (CBC) 0.3 K/uL (0.7-4.9); Absolute Monocytes 0.4 K/uL (0.1-1.3); Absolute Neutrophil 3.1 K/uL (1.8-8.0); Basophils % 0.8 % (0-1.3); Eosinophils % 0.2 % (0-4.4); Hematocrit 35.7 % (39.6-49.0); Lymphocytes % 8.8 % (15.3-44.8); MCH 33.7 pg (27.0-35.0); MCV 97.3 fL (80-100); MPV 7.9 fL (7.6-11.3); Monocytes % 9.3 % (3.3-12.3); RBC Red Blood Cell Count 3.67 M/uL (4.33-5.43)
[2018-05-16 04:49] LABS: BUN Blood Urea Nitrogen 8 mg/dL (7-18); Bicarbonate 29 mmol/L (21-32); Glucose Level 95 mg/dL (74-106); Potassium 4.2 mmol/L (3.5-5.1); Sodium Level 137 mmol/L (136-145)
[2018-05-16] MEDS: ARFORMOTEROL TARTRATE 15 MCG/2 ML VIAL.NEB NEB SCH (08:50)
[2018-05-16] MEDS: METOPROLOL TAR 50 MG TAB PO SCH (09:25)
[2018-05-16] MEDS: ENOXAPARIN 80 MG/0.8 ML SQ SCH (09:25)
[2018-05-16] MEDS: predniSONE 20 MG TAB PO SCH (09:25)
[2018-05-16] MEDS: PANTOPRAZOLE 40 MG INJ IVP SCH (09:25)
--- NOTE | 2018-05-16 09:25 | P.DS ---
Admission Date: 05/14/18 Discharge Date: 05/16/18 Primary Care Provider: Dr. Garcia; Oncology-Dr. Weaver Disposition: ROUTINE DISCHARGE Discharge Condition: GOOD Reason for Admission: onset atrial fibrillation Consultations: Cardiology-Dr. Jose Procedures: CT scan: COMPARISON: October 2017 TECHNIQUE: Dynamically enhanced axial 3 mm thick images of the chest were obtained during administration of <100> mL Isovue 370 IV contrast. Coronal and oblique reconstruction images were generated and reviewed. Exam utilizes a protocol for optimal evaluation of pulmonary arterial tree. Maximum intensity projections 3D imaging was utilized All CT scans are performed using dose optimization technique as appropriate and may include automated exposure control or mA/KV adjustment according to patient size. FINDINGS: A pulmonary embolus is not seen. A thoracic aortic aneurysm is not noted. A pleural effusion is not seen. A pericardial effusion is not seen. The previously described spiculated 2.4 centimeter mass within the left upper lobe has mostly resolved. COPD is again demonstrated No significant mediastinal or hilar lymphadenopathy is displayed IMPRESSION: Negative for a pulmonary embolism. ECHO: EF 52% Medical Problem List: Shortness of breath secondary to COPD exacerbation New onset Atrial fibrillation with RVR, now rate controlled and will be on chronic anticoagulation GERD History of Lung cancer with brain metastasis, Current CT scan of chest shows almost complete resolution of left upper lobe lung mass. Brief History of Present Illness: 77 yo CM presented to the ER with shortness of breath. He was found to be in atrial fibrillation with RVR. He also had COPD exacerbation. He was admitted for treatment. Hospital Course: Patient presented with shortness of breath and found to have atrial fibrillation with RVR. He was placed on medication including a beta tate and anticoagulation. He was also treated for COPD. He responded well with therapy. His rate improved but he was still in atrial fibrillation. ECHO showed normal EF of 52%. CT scan showed no pulmonary embolus. CT also showed improvement of 2.4 cm spiculated mass to the left upper lobe. It has almost completely resolved. He has Lung cancer and recently finished with radiation. He is seen by Oncology. He has a history of Brain metastasis. He is to have an MRI of the brain later today as outpatient. At discharge for his COPD, he will continue with Prednisone 20 mg one pill twice daily for 5 days then one pill daily for 5 days. He will also be given Symbicort 160 mcg 2 puffs BID and Proair HFA 2 puffs three times a day as needed for shortness of breath. He will need to follow up with Pulmonary as an outpatient to monitor his progress. For his new onset atrial fibrillation, at discharge he will continue with Metoprolol 50 mg one pill twice daily. He will also start chronic anticoagulation therapy-Eliquis 5 mg one pill twice daily. He will be given a coupon for this. He will need to follow up with Cardiology in one week to monitor his progress and to further address. He has history of Lung cancer with recent radiation therapy. He also has history of brain metastasis. He will have an outpatient MRI of the brain later today. He will follow up with Oncology within one week to further address. Patient may have underlying GERD. He will continue with Protonix 40 mg one pill daily. Vital Signs/Physical Exam: Temp Pulse Resp BP Pulse Ox 98.1 F 81 20 136/73 97 05/16/18 04:00 05/16/18 04:00 05/16/18 04:00 05/16/18 04:00 05/16/18 04:00 General: Alert, In no apparent distress, Oriented x3 HEENT: Atraumatic Neck: Supple Respiratory: Clear to auscultation bilaterally, Normal air movement Cardiovascular: Irregular heart rate/rhythm (atrial fibrillation, rate controlled.) Gastrointestinal: Normal bowel sounds, Soft and benign, Non-distended, No rebound, No guarding Integumentary: No erythema, No warmth, No cyanosis Neurological: Normal speech, Normal strength at 5/5 x4 extr, Normal tone, Normal affect Laboratory Data at Discharge: WBC 3.8 K/uL (4.3-10.9) L 05/16/18 03:33 Hgb 12.4 g/dL (13.6-17.9) L 05/16/18 03:33 Hct 35.7 % (39.6-49.0) L 05/16/18 03:33 Plt Count 213 K/uL (152-406) 05/16/18 03:33 PT 12.1 SECONDS (9.5-12.5) 05/14/18 15:20 INR 1.03 05/14/18 15:20 APTT 24.9 SECONDS (24.3-36.9) 05/14/18 15:20 Sodium 137 mmol/L (136-145) 05/16/18 03:33 Potassium 4.2 mmol/L (3.5-5.1) 05/16/18 03:33 BUN 8 mg/dL (7-18) 05/16/18 03:33 Creatinine 0.80 mg/dL (0.55-1.3) 05/16/18 03:33 Glucose 95 mg/dL (74-106) 05/16/18 03:33 Phosphorus 2.8 mg/dL (2.5-4.9) 05/15/18 04:03 Magnesium 2.0 mg/dL (1.8-2.4) 05/16/18 03:33 Total Bilirubin 0.4 mg/dL (0.2-1.0) 05/15/18 04:03 AST 11 U/L (15-37) L 05/15/18 04:03 ALT 15 U/L (12-78) 05/15/18 04:03 Alkaline Phosphatase 59 U/L (45-117) 05/15/18 04:03 Lipase 77 U/L (73-393) 05/14/18 15:20 Home Medications: Albuterol Inhaler [Ventolin Inhaler] 2 puff IH BID 12/26/17 Patient Discharge Instructions: 1. Patient will need to follow up with his PCP in one week to follow up this hospitalization. 2. Patient presented with shortness of breath and found to have atrial fibrillation with RVR. He was placed on medication including a beta tate and anticoagulation. He was also treated for COPD exacerbation. He responded well with therapy. His rate improved but he was still in atrial fibrillation. ECHO showed normal EF of 52%. CT scan showed no pulmonary embolus. CT also showed improvement of 2.4 cm spiculated mass to the left upper lobe. It has almost completely resolved. He has Lung cancer and recently finished with radiation. He is seen by Oncology. He has a history of Brain metastasis as well. He is to have an MRI of the brain later today as outpatient. 3. At discharge for his COPD, he will continue with Prednisone 20 mg one pill twice daily for 5 days then one pill daily for 5 days. He will also be given Symbicort 160 mcg 2 puffs BID and Proair HFA 2 puffs three times a day as needed for shortness of breath. He will need to follow up with Pulmonary as an outpatient to monitor his progress. 4. For his new onset atrial fibrillation, at discharge he will continue with Metoprolol 50 mg one pill twice daily. He will also start chronic anticoagulation therapy- Eliquis 5 mg one pill twice daily. He will be given a coupon for this. He will need to follow up with Cardiology in one week to monitor his progress and to further address. 5. He has history of Lung cancer with recent radiation therapy. He also has history of brain metastasis. He will have an outpatient MRI of the brain later today. He will follow up with Oncology within one week to further address. 6. Patient may have underlying GERD. He will continue with Protonix 40 mg one pill daily. Diet: AHA Activity: Fall precautions Time spent managing pt's care (in minutes): 55
[2018-05-16 12:17] VITALS: BP 113/65; TEMP 98.9
[2018-05-16 15:16] VITALS: O2SAT 94
--- NOTE | 2018-05-17 07:00 | CON ---
Date of Consultation: 05/15/2018 Reason For Consultation: Atrial fibrillation. History Of Present Illness: Mr. Clifton is a 77-year-old male with history of dyslipidemia, hypertens ion, COPD, history of lung cancer and bladder cancer. He takes multiple inhalers at home, aspirin, L ipitor, Norvasc. Came in with shortness of breath, was found to have atrial fibrillation with rapid ventricular response. This, so far, has actually improved with a normal heart rate, but still in atr ial fibrillation. The patient now is asymptomatic. He has some discomfort that is midepigastric, ra diating to the back with some nausea. No PND, orthopnea, pedal edema, or syncope. He did have some palpitations and shortness of breath. Past Medical History: As stated above. Allergies: NONE. Review of Systems: Negative. Social History: Negative. Family History: Negative. Medications: As listed earlier. Physical Examination: General: No acute distress, atrial fibrillation, rate of 80. HEENT: Negative. Neck: Supple without any bruit, lymphadenopathy, JVD, or thyromegaly. Chest: Clear to auscultation and percussion. Cardiac: Atrial fibrillation. No murmurs, gallops, or rubs. Abdomen: Benign. Extremities: No clubbing, cyanosis, or edema. Diagnostic Data: Except for the atrial fibrillation was fairly unremarkable. Impression And Plan: 1.New onset atrial fibrillation. 2.Hypertension. 3.Dyslipidemia. 4.Chronic obstructive pulmonary disease. 5.History of lung and bladder cancer. Mr. Clifton needs an echocardiogram, that is already pending. I think we need to add beta-tate to his regimen for now. I think he should be anticoagulated with Xarelto or Eliquis. He should probabl y have an outpatient stress test. I would like to see him in the office in the next 2 weeks. Does n ot see what the echocardiogram shows first. He can certainly go home on a beta-tate and an antico agulant and then we will decide on further therapy regarding his atrial fibrillation later. His bloo d pressure and dyslipidemia and COPD are well controlled. WILDER/SHAYAN Voice ID: [id number] Report ID: [id number]
--- NOTE | 2018-05-18 07:00 | EKG ---
Test Date: 2018-05-16 Test Time: 07:33:48 Suspender Maker: IMTIAZ MEASUREMENT RESULTS: Intervals: Rate: 82 ME: QRSD: 120 QT: 368 QTc: 429 [place]: P: -57 ME: QRS: -36 T: 66 INTERPRETIVE STATEMENTS: Atrial flutter with 4:1 AV conduction Left axis deviation Nonspecific intraventricular conduction delay Abnormal ECG Compared to ECG 05/14/2018 14:27:57 Intraventricular conduction delay now present Incomplete right bundle-branch block no longer present Electronically Signed On 05-18-18 06:55:59 CDT by Norbert Jose
== END 2018-05-16 10:25 | disposition home or self-care (01) ==
LOC: ER 14:23 → INTOOBSV 18:04 → ERHOLD 18:04 → 4TH 19:20
PROVIDERS: ADMIT Family Medicine; ATTEND Internal Medicine
DX: I48.91 Unspecified atrial fibrillation (principal); J44.1 Chronic obstructive pulmonary disease with (acute) exacerbation; I10 Essential (primary) hypertension; C34.90 Malignant neoplasm of unspecified part of unspecified bronchus or lung; Z85.51 Personal history of malignant neoplasm of bladder; F17.210 Nicotine dependence, cigarettes, uncomplicated; Z85.841 Personal history of malignant neoplasm of brain
CPT/HCPCS: 36415 ×2; 71045; 71275; 80048 ×2; 80053 ×2; 80076; 82550; 83690; 83735 ×3; 83880; 84100; 84443; 84484; 85025 ×3; 85610; 85730; 87040 ×2; 93005 ×2; 93306; 94640; 94760 ×3; 96360; 96361; 99285; C9113 ×2; G0378 ×2; J1650 ×4; J2405 ×2; J2550; J7030 ×2; J7605 ×2; Q9967; 70553; 81003; 81015; A9577; J7512

== ENCOUNTER 2018-09-03 22:11 | Observation (INO) | payer OTHER, BC ==
--- OUTSIDE RECORDS SUMMARY | 2018-09-03 22:37 | XMS REPORT ---
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
--- OUTSIDE RECORDS SUMMARY | 2018-09-03 22:37 | XMS REPORT ---
:1940 Author Organization e[employer] Care Team Providers Name Role Phone Shane Epstein Provider Role Unavailable Allergies, Adverse Reactions, Alerts Substance Reaction Event Type N.K.D.A. 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 Active Problem Chronic obstructive pulmonary J44.9 Active disease, unspecified COPD type Problem Atrial fibrillation, unspecified I48.91 Active type Assessment Mass of upper lobe of left lung R91.8 Active Assessment History of CVA (cerebrovascular Z86.73 Active accident) without residual deficits Assessment Malignant neoplasm of unspecified C34.90 Active part of unspecified bronchus or lung Assessment 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 Active Assessment GERD without esophagitis K21.9 Active Medications Medication Code Code Instructions Start End Date Status Dosage System Date Spiriva [facility] 30724967881 2.5 microgram November Active 2 puffs Respimat Inhaled Once a 2018 day Symbicort ND 77196180335 160-4.5 MCG/ACT Jun 04December 31, Active 2 puffs Inhalation 2017 2018 Twice a day Ventolin HFA ND 05821170269 90 MCG/ACT Active 2 puffs Inhalation as needed every 6 hrs PRN Pantoprazole ND 51259527109 40 MG Orally Active 1 tablet Sodium Once a day Apixaban [facility] [address]-56 5 MG Orally Active 1 tab Twice a day Metoprolol ND 04411503770 50 MG Orally Active 1 tablet Tartrate Twice a day with food PredniSONE ND 38254837645 20 MG Orally Active 1 tablet Once a day Results No Known Results Summary Purpose eClinicalWorks Submission
[2018-09-03] MEDS ORDERED: IPRATROPIUM BROM 0.5MG/2.5ML ONE (22:52)
[2018-09-03] MEDS ORDERED: METHYLPREDNISOLONE 125 MG INJ ONE (22:52)
[2018-09-03] MEDS ORDERED: MORPHINE 4 MG/ML SYR ONE (22:52)
[2018-09-03] MEDS ORDERED: ONDANSETRON 4 MG/2 ML VIAL ONE (22:52)
[2018-09-03] MEDS ORDERED: LEVALBUTEROL 1.25 MG/3 ML NEB ONE (22:52)
[2018-09-03] MEDS ORDERED: NA CHLORIDE 0.9% 1,000 ML ONE (22:53)
[2018-09-03 23:02] LABS: Absolute Lymphocytes (CBC) 1.5 K/uL (0.7-4.9); Absolute Monocytes 1.2 K/uL (0.1-1.3); Absolute Neutrophil 5.9 K/uL (1.8-8.0); Basophils % 1.1 % (0-1.3); Eosinophils % 3.3 % (0-4.4); Hematocrit 45.5 % (39.6-49.0); Lymphocytes % 16.4 % (15.3-44.8); MPV 7.6 fL (7.6-11.3); Monocytes % 13.2 % (3.3-12.3); RBC Red Blood Cell Count 4.49 M/uL (4.33-5.43)
[2018-09-03 23:05] LABS: Protime INR 1.24
[2018-09-03 23:24] LABS: ALT/SGPT 17 U/L (12-78); AST/SGOT 13 U/L (15-37); Albumin 3.3 g/dL (3.4-5.0); Alkaline Phosphatase 97 U/L (45-117); BUN Blood Urea Nitrogen 7 mg/dL (7-18); Bicarbonate 32 mmol/L (21-32); Bilirubin Direct 0.1 mg/dL (0-0.2); Bilirubin Total 0.3 mg/dL (0.2-1.0); Glucose Level 85 mg/dL (74-106); Lipase 68 U/L (73-393); Magnesium 2.3 mg/dL (1.8-2.4); NT PRO-BNP 124 pg/mL (<450); Potassium 4.2 mmol/L (3.5-5.1); Protein, Total 6.8 g/dL (6.4-8.2); Sodium Level 140 mmol/L (136-145); Troponin (Emerg Dept Use Only) < 0.02 ng/mL (0.0-0.045)
--- NOTE | 2018-09-03 23:29 | ER ---
Nurse's Notes [facility] Name: Roly Clifton Age: 77 yrs Sex: Male : 1940 Arrival Date: 09/03/2018 Time: 22:12 Bed 6 Private MD: Diagnosis: Chest pain on breathing-hx of lung cancer, on chemo;Chest pain, unspecified;Chronic obstructive pulmonary disease with (acute) exacerbation Presentation: 09/03 22:22 Presenting complaint: Patient states: Chest pain, shortness of breath that began 1 hour lp1 ago; States hx of lung cancer, COPD. Transition of care: patient was not received from another setting of care. Onset of symptoms was September 03, 2018 at 21:30. Risk Assessment: Do you want to hurt yourself or someone else? Patient reports no desire to harm self or others. Initial Sepsis Screen: Does the patient meet any 2 criteria? No. Patient's initial sepsis screen is negative. Does the patient have a suspected source of infection? No. Patient's initial sepsis screen is negative. Care prior to arrival: None. 22:22 Method Of Arrival: Wheelchair lp1 22:22 Acuity: MASON 2 lp1 Triage Assessment: 23:13 General: Appears distressed, uncomfortable, Behavior is calm, cooperative. Pain: ak1 Complains of pain in left clavicle and chest and left breast. EENT: No signs and/or symptoms were reported regarding the EENT system. Neuro: No deficits noted. Cardiovascular: Reports chest pain. Respiratory: Airway is patent Respiratory effort is labored, with retractions. Respiratory: Breath sounds with wheezes. GI: No signs and/or symptoms were reported involving the gastrointestinal system. : No signs and/or symptoms were reported regarding the genitourinary system. Derm: No signs and/or symptoms reported regarding the dermatologic system. Musculoskeletal: No signs and/or symptoms reported regarding the musculoskeletal system. Historical: - Allergies: 22:28 NKA; lp1 - Home Meds: 22:28 Spiriva Respimat 2.5 mcg/actuation inhalation mist 2 puffs once daily [Active]; lp1 Symbicort 160-4.5 mcg/actuation inhalation HFAA 2 puffs 2 times per day [Active]; Ventolin HFA 90 mcg/actuation Nebulizer HFAA 2 puffs every 6 hours [Active]; pantoprazole 40 mg oral TbEC 1 tab once daily [Active]; Eliquis 5 mg oral tab 1 tab 2 times per day [Active]; tamsulosin 0.4 mg oral cp24 1 cap once daily [Active]; metoprolol tartrate 50 mg Oral tab 1 tab 2 times per day [Active]; - PMHx: 22:28 Bladder cancer; COPD; Lung Cancer; CVA; Arrythmia; lp1 - PSHx: 22:28 Bladder tumor removal; lp1 - Immunization history:: Adult Immunizations up to date. - Social history:: Smoking status: Patient uses tobacco products, smokes one-half pack cigarettes per day. - Ebola Screening: : No symptoms or risks identified at this time. - Family history:: not pertinent. Screenin:30 Abuse screen: Denies threats or abuse. Denies injuries from another. Nutritional lp1 screening: No deficits noted. Tuberculosis screening: No symptoms or risk factors identified. 23:14 Fall Risk None identified. ak1 Assessment: 23:15 Pain: Pain radiates to left arm Pain began 1 day ago. ak1 23:17 Reassessment: see triage assessment. ak1 09/04 00:41 Reassessment: Patient appears in no apparent distress at this time. Patient and/or ak1 family updated on plan of care and expected duration. Pain level reassessed. Patient is alert, oriented x 3, equal unlabored respirations, skin warm/dry/pink. Patient states feeling better. Patient states symptoms have improved. Vital Signs: 09/03 22:24 BP 122 / 72; Pulse 73; Resp 24; Temp 98.3(TE); Pulse Ox 100% on R/A; Weight 86.18 kg; lp1 Height 6 ft. 3 in. (190.50 cm); Pain 6/10; 09/04 00:16 BP 120 / 64; Pulse 93; Resp 20; Pulse Ox 100% on R/A; ak1 00:39 BP 108 / 58; Pulse 94; Resp 22; Temp 98.4; Pulse Ox 98% on R/A; ak1 09/03 22:24 Body Mass Index 23.75 (86.18 kg, 190.50 cm) lp1 ED Course: 09/03 22:12 Patient arrived in ED. al2 22:18 Ariana Barragan, RN is Primary Nurse. ak1 22:23 Triage completed. lp1 22:24 Arm band placed on left wrist. lp1 22:29 Patient has correct armband on for positive identification. Placed in gown. Bed in low lp1 position. Call light in reach. health underwriter on. Pulse ox on. NIBP on. 22:29 Patient maintains SpO2 saturation greater than 95% on room air. lp1 22:29 Inserted saline lock: 20 gauge in right forearm, using aseptic technique. Blood lp1 collected. By Ariana Barragan RN. 22:30 Thierry Song MD is Attending Physician. [facility] 22:40 Radiology exam delayed due to lab results not completed at this time. (BUN/Creatinine). wv 22:46 XRAY Chest (1 view) In Process Unspecified. EDMS 23:00 Radiology exam delayed due to lab results not completed at this time. (BUN/Creatinine). 2 23:27 Kunal Hwang MD is Hospitalizing Provider. [facility] 23:[address] via stretcher. kw1 09/04 00:05 CT completed. Patient tolerated procedure well. Patient moved back from CT. kw1 00:07 CT Chest For PE Angio In Process Unspecified. EDMS 00:39 No provider procedures requiring assistance completed. Patient admitted, IV remains in ak1 place. Administered Medications: 09/03 22:58 Drug: Xopenex 3.75 mg Route: Inhalation; ak 22:58 Drug: AtroVENT Aerosol 0.5 mg Route: Inhalation; ak1 22:59 Drug: morphine 4 mg Route: IVP; Site: right forearm; ak1 23:13 Follow up: Response: No adverse reaction ak1 22:59 Drug: Zofran 4 mg Route: IVP; Site: right forearm; ak1 23:13 Follow up: Response: No adverse reaction ak1 22:59 Drug: SOLU-Medrol 125 mg Route: IVP; Site: right forearm; ak1 23:12 Follow up: Response: No adverse reaction ak1 23:00 Drug: NS 0.9% 1000 ml Route: IV; Rate: 125 ml/hr; Site: right forearm; ak1 09/04 00:38 Follow up: IV Status: Infusion continued upon admission ak1 09/03 23:32 Drug: Rocephin - (cefTRIAXone) 1 grams Route: IVPB; Infused Over: 30 mins; Site: right ak1 forearm; 09/04 00:16 Follow up: IV Status: Completed infusion ak1 00:16 Drug: Zithromax 500 mg Route: IVPB; Infused Over: 1 hrs; Site: right forearm; ak1 01:33 Follow up: IV Status: Completed infusion; IV Intake: 100ml ak1 Intake: 01:33 IV: 100ml; Total: 100ml. ak1 Outcome: 09/03 23:28 Decision to Hospitalize by Provider. [facility] 09/04 00:39 Condition: stable ak1 Instructed on the need for admit. 01:34 Admitted to Med/surg accompanied by tech, via wheelchair, room 431, with chart, Report ak1 called to [place] BUTTS 01:35 Patient left the ED. ak1 Signatures: Dispatcher [employer] EDThierry Yanez MD MD cha Pena, Laura, RN RN lp1 Ariana Barragan RN RN ak1 John To Victoria vm2 Kristin Fuentes1 Kathleen Johnson
--- NOTE | 2018-09-03 23:29 | EDPHYS ---
Physician Documentation [facility] Name: Roly Clifton Age: 77 yrs Sex: Male : 1940 Arrival Date: 09/03/2018 Time: 22:12 Bed 6 Private MD: ED Physician Thierry Song HPI: 09/03 22:37 This 77 yrs old Male presents to ER via Wheelchair with complaints of Chest lluvia Pain. 22:37 The patient or guardian reports chest pain that is located primarily in the substernal lluvia area. The patient or guardian reports chest pain that is located primarily in the anterior chest wall. Onset: just prior to arrival, today. The pain radiates to the left arm. Associated signs and symptoms: Pertinent positives: shortness of breath. The chest pain is described as a heaviness, a pressure, sharp. Modifying factors: The symptoms are alleviated by remaining still, the symptoms are aggravated by breathing, cough, deep breath, movement, palpation of area. Historical: - Allergies: 22:28 NKA; lp1 - Home Meds: 22:28 Spiriva Respimat 2.5 mcg/actuation inhalation mist 2 puffs once daily [Active]; lp1 Symbicort 160-4.5 mcg/actuation inhalation HFAA 2 puffs 2 times per day [Active]; Ventolin HFA 90 mcg/actuation Nebulizer HFAA 2 puffs every 6 hours [Active]; pantoprazole 40 mg oral TbEC 1 tab once daily [Active]; Eliquis 5 mg oral tab 1 tab 2 times per day [Active]; tamsulosin 0.4 mg oral cp24 1 cap once daily [Active]; metoprolol tartrate 50 mg Oral tab 1 tab 2 times per day [Active]; - PMHx: 22:28 Bladder cancer; COPD; Lung Cancer; CVA; Arrythmia; lp1 - PSHx: 22:28 Bladder tumor removal; lp1 - Immunization history:: Adult Immunizations up to date. - Social history:: Smoking status: Patient uses tobacco products, smokes one-half pack cigarettes per day. - Ebola Screening: : No symptoms or risks identified at this time. - Family history:: not pertinent. ROS: 22:37 Constitutional: Negative for fever, chills, and weight loss, Eyes: Negative for injury, lluvia pain, redness, and discharge, ENT: Negative for injury, pain, and discharge, Neck: Negative for injury, pain, and swelling, Abdomen/GI: Negative for abdominal pain, nausea, vomiting, diarrhea, and constipation, Back: Negative for injury and pain, : Negative for injury, bleeding, discharge, and swelling, MS/Extremity: Negative for injury and deformity, Skin: Negative for injury, rash, and discoloration, Neuro: Negative for headache, weakness, numbness, tingling, and seizure, Psych: Negative for depression, anxiety, suicide ideation, homicidal ideation, and hallucinations, Allergy/Immunology: Negative for hives, rash, and allergies, Endocrine: Negative for neck swelling, polydipsia, polyuria, polyphagia, and marked weight changes, Hematologic/Lymphatic: Negative for swollen nodes, abnormal bleeding, and unusual bruising. 22:37 Cardiovascular: Positive for chest pain, of the anterior aspect of left upper chest and left breast. 22:37 Respiratory: Positive for shortness of breath, at rest. Exam: 22:37 Constitutional: This is a well developed, well nourished patient who is awake, alert, lluvia and in no acute distress. Head/Face: Normocephalic, atraumatic. Eyes: Pupils equal round and reactive to light, extra-ocular motions intact. Lids and lashes normal. Conjunctiva and sclera are non-icteric and not injected. Cornea within normal limits. Periorbital areas with no swelling, redness, or edema. ENT: Nares patent. No nasal discharge, no septal abnormalities noted. Tympanic membranes are normal and external auditory canals are clear. Oropharynx with no redness, swelling, or masses, exudates, or evidence of obstruction, uvula midline. Mucous membranes moist. Neck: Trachea midline, no thyromegaly or masses palpated, and no cervical lymphadenopathy. Supple, full range of motion without nuchal rigidity, or vertebral point tenderness. No Meningismus. Cardiovascular: Regular rate and rhythm with a normal S1 and S2. No gallops, murmurs, or rubs. Normal PMI, no JVD. No pulse deficits. Abdomen/GI: Soft, non-tender, with normal bowel sounds. No distension or tympany. No guarding or rebound. No evidence of tenderness throughout. Back: No spinal tenderness. No costovertebral tenderness. Full range of motion. Male : Normal genitalia with no discharge or lesions. Skin: Warm, dry with normal turgor. Normal color with no rashes, no lesions, and no evidence of cellulitis. 22:37 Chest/axilla: Inspection: normal, Palpation: tenderness, that is mild, of the left clavicle, anterior aspect of left upper chest, left nipple and left breast, Axilla: are normal. Vital Signs: 22:24 BP 122 / 72; Pulse 73; Resp 24; Temp 98.3(TE); Pulse Ox 100% on R/A; Weight 86.18 kg; lp1 Height 6 ft. 3 in. (190.50 cm); Pain /; 09/04 00:16 BP 120 / 64; Pulse 93; Resp 20; Pulse Ox 100% on R/A; ak1 00:39 BP 108 / 58; Pulse 94; Resp 22; Temp 98.4; Pulse Ox 98% on R/A; ak1 09/03 22:24 Body Mass Index 23.75 (86.18 kg, 190.50 cm) lp1 MDM: 09/03 22:30 Patient medically screened. [facility] 22:40 Data reviewed: vital signs, nurses notes, lab test result(s), EKG, radiologic studies, [facility] CT scan, plain films. 09/03 22:33 Order name: Basic Metabolic Panel [facility] 09/03 22:33 Order name: CBC with Diff [facility] 09/03 22:33 Order name: LFT's [facility] 09/03 22:33 Order name: Magnesium; Complete Time: 23:25 [facility] 09/03 22:33 Order name: NT PRO-BNP; Complete Time: 23:25 [facility] 09/03 22:33 Order name: PT-INR; Complete Time: 23:25 [facility] 09/03 22:33 Order name: Troponin (emerg Dept Use Only); Complete Time: 23:25 [facility] 09/03 22:33 Order name: XRAY Chest (1 view) [facility] 09/03 22:33 Order name: Blood Culture Adult (2) [facility] 09/03 22:33 Order name: Lipase; Complete Time: 23:25 [facility] 09/03 22:33 Order name: Urine Culture [facility] 09/03 22:34 Order name: Basic Metabolic Panel; Complete Time: 23:25 [facility]FL 09/03 22:34 Order name: CBC with Automated Diff; Complete Time: 23:25 EDMS 09/03 22:34 Order name: Liver (Hepatic) Function; Complete Time: 23:25 [facility] 09/03 22:33 Order name: EKG; Complete Time: 22:34 [facility] 09/03 22:33 Order name: Cardiac monitoring; Complete Time: 22:39 [facility] 09/03 22:33 Order name: EKG - Nurse/Tech; Complete Time: 22:39 [facility] 09/03 22:33 Order name: IV Saline Lock; Complete Time: 22:39 [facility] 09/03 22:33 Order name: Labs collected and sent; Complete Time: 22:47 [facility] 09/03 22:33 Order name: O2 Per Protocol; Complete Time: 22:39 [facility] 09/03 22:33 Order name: O2 Sat Monitoring; Complete Time: 22:39 [facility] 09/03 22:37 Order name: CT Chest For PE Angio lluvia Administered Medications: 22:58 Drug: Xopenex 3.75 mg Route: Inhalation; ak1 22:58 Drug: AtroVENT Aerosol 0.5 mg Route: Inhalation; ak1 22:59 Drug: morphine 4 mg Route: IVP; Site: right forearm; ak1 23:13 Follow up: Response: No adverse reaction ak1 22:59 Drug: Zofran 4 mg Route: IVP; Site: right forearm; ak1 23:13 Follow up: Response: No adverse reaction ak1 22:59 Drug: SOLU-Medrol 125 mg Route: IVP; Site: right forearm; ak1 23:12 Follow up: Response: No adverse reaction ak1 23:00 Drug: NS 0.9% 1000 ml Route: IV; Rate: 125 ml/hr; Site: right forearm; ak1 09/04 00:38 Follow up: IV Status: Infusion continued upon admission ak1 09/03 23:32 Drug: Rocephin - (cefTRIAXone) 1 grams Route: IVPB; Infused Over: 30 mins; Site: right ak1 forearm; 09/04 00:16 Follow up: IV Status: Completed infusion ak1 00:16 Drug: Zithromax 500 mg Route: IVPB; Infused Over: 1 hrs; Site: right forearm; pr1 01:33 Follow up: IV Status: Completed infusion; IV Intake: 100ml [facility] Disposition: 09/03/18 23:28 Hospitalization ordered by Kunal Hwang for Observation. Preliminary diagnosis are Chest pain on breathing - hx of lung cancer, on chemo, Chest pain, unspecified, Chronic obstructive pulmonary disease with (acute) exacerbation. - Bed requested for Telemetry/MedSurg (observation). - Status is Observation. ak1 - Condition is Fair. - Problem is new. - Symptoms have improved. UTI on Admission? No Signatures: Dispatcher [employer] EDMS Fanta Rodriguez RN RN mw Anderson, Corey, MD MD cha Pena, Laura, RN RN lp1 Ariana Barragan RN RN ak1 Corrections: (The following items were deleted from the chart) 09/03 23:29 23:28 Hospitalization Ordered by Kunal Hwang MD for Observation. Preliminary [facility] diagnosis is Chest pain on breathing; Chest pain, unspecified; Chronic obstructive pulmonary disease with (acute) exacerbation. Bed requested for Telemetry/MedSurg (observation). Status is Observation. Condition is Fair. Problem is new. Symptoms have improved. UTI on Admission? No. lluvia 09/04 00:02 09/03 23:29 09/03/2018 23:28 Hospitalization Ordered by Kunal Hwang MD for Observation. Preliminary diagnosis is Chest pain on breathing - hx of lung cancer, on chemo; Chest pain, unspecified; Chronic obstructive pulmonary disease with (acute) exacerbation. Bed requested for Telemetry/MedSurg (observation). Status is Observation. Condition is Fair. Problem is new. Symptoms have improved. UTI on Admission? No. lluvia 09/04 01:35 00:02 09/03/2018 23:28 Hospitalization Ordered by Kunal Hwang MD for Observation. ak1 Preliminary diagnosis is Chest pain on breathing - hx of lung cancer, on chemo; Chest pain, unspecified; Chronic obstructive pulmonary disease with (acute) exacerbation. Bed requested for Telemetry/MedSurg (observation). Status is Observation. Condition is Fair. Problem is new. Symptoms have improved. UTI on Admission? No. uziel
[2018-09-03] MEDS ORDERED: CEFTRIAXONE/SWI 1gm 1 GM/10 ML SYR ONE (23:43)
[2018-09-03] MEDS ORDERED: AZITHROMYCIN 500 MG/250 ML BAG ONE (23:43)
--- NOTE | 2018-09-04 01:02 | P.HP ---
Certification for Inpatient Patient admitted to: Observation With expected LOS: <2 Midnights Practitioner: I am a practitioner with admitting privileges, knowledge of patient current condition, hospital course, and medical plan of care. Services: Services provided to patient in accordance with Admission requirements found in Title 42 Section 412.3 of the Code of Federal Regulations Patient History Date of Service: 09/04/18 Reason for admission: chest pain History of Present Illness: Mr Clifton is a 77 years old male withi history of lung cancer, COPD, HTN, A.Fib anticoagulated with apixiban, who came to ED complaining of chest pain. The pain is sharp, over his left side of the chest, no radiated, 6/10 of intensity, started about 1 hour prior to arrive. No history of nausea, vomiting, more SOB than usual, or diaphoresis. He denied fever, or increasing cough, no changes in sputum color either. Lab work shows normal WBC count, initial Trop I negative, EKG no ST-T acute changes. CTA chest no PE. Allergies No Known Allergies Allergy (Verified 12/26/17 13:10) Home Medications: Albuterol Inhaler [Ventolin Inhaler] 2 puff IH BID 12/26/17 Albuterol Sulfate [Proair Hfa] 8.5 gm IH TID PRN #1 hfa.aer.ad 05/16/18 Apixaban [Eliquis] 5 mg PO BID #60 tablet 05/16/18 Budesonide/Formoterol Fumarate [Symbicort 160-4.5 Mcg Inhaler] 2 puff IH BID #1 hfa.aer.ad 05/16/18 Metoprolol Tartrate 50 mg PO BID #60 tablet 05/16/18 Pantoprazole [Protonix Tab] 40 mg PO DAILY #30 tab 05/16/18 predniSONE [Deltasone] 20 mg PO DAILY #15 tab 05/16/18 - Past Medical/Surgical History Diabetic: No -: COPD -: Lung Cancer -: Bladder Cancer -: Spot in the Brain -: a.fib -: Bladder tumor removal - Family History Father -: Hypertension, Stroke - Social History Smoking Status: Current every day smoker Counseled patient to stop smoking for: less than 10 minutes Alcohol use: No CD- Drugs: No Caffeine use: Yes Place of Residence: Home Review of Systems 10-point ROS is otherwise unremarkable Physical Examination - Physical Exam General: Alert, In no apparent distress HEENT: Atraumatic, PERRLA, Mucous membr. moist/pink, EOMI, Sclerae nonicteric Neck: Supple, 2+ carotid pulse no bruit, No LAD, Without JVD or thyroid abnormality Respiratory: Diminished, Expiratory wheezes, Rhonchi/gurgles Cardiovascular: Regular rate/rhythm, Normal S1 S2 Gastrointestinal: Normal bowel sounds, No tenderness Musculoskeletal: No tenderness Integumentary: No rashes Neurological: Normal speech, Normal strength at 5/5 x4 extr, Normal tone, Normal affect Lymphatics: No axilla or inguinal lymphadenopathy - Studies Laboratory Data (last 24 hrs) 09/03/18 22:40: PT 14.7 H, INR 1.24 09/03/18 22:40: WBC 8.9, Hgb 15.1, Hct 45.5, Plt Count 281 09/03/18 22:40: Sodium 140, Potassium 4.2, BUN 7, Creatinine 0.67, Glucose 85, Magnesium 2.3, Total Bilirubin 0.3, AST 13 L, ALT 17, Alkaline Phosphatase 97, Lipase 68 L Assessment and Plan - Problems (Diagnosis) (1) Atrial fibrillation Current Visit: Yes Status: Acute Qualifiers: Atrial fibrillation type: paroxysmal Qualified Code(s): I48.0 - Paroxysmal atrial fibrillation (2) Chest pain Current Visit: Yes Status: Acute Qualifiers: Chest pain type: unspecified Qualified Code(s): R07.9 - Chest pain, unspecified (3) COPD (chronic obstructive pulmonary disease) Onset Date: 05/15/18 Current Visit: No Status: Acute Qualifiers: COPD type: unspecified COPD Qualified Code(s): J44.9 - Chronic obstructive pulmonary disease, unspecified (4) Lung cancer Onset Date: 05/15/18 Current Visit: No Status: Acute Qualifiers: Laterality: unspecified laterality Lung location: unspecified part of lung Qualified Code(s): C34.90 - Malignant neoplasm of unspecified part of unspecified bronchus or lung - Plan The patient will be admitted to the hospital due to chest pain. Initial troponin I is negative, no EKG changes. Will check serial cardiac enzymes, EKG. Will order brathing treatment and IV steroids for his COPD. - Advance Directives Does patient have a Living Will: Yes Does patient have a Durable POA for Healthcare: Yes - Code Status/Comfort Care Code Status Assessed: Yes Code Status: Full Code
[2018-09-04] MEDS ORDERED: ONDANSETRON 4 MG/2 ML VIAL IV PRN (01:51)
[2018-09-04] MEDS ORDERED: IPRATROPIUM BROM 0.5MG/2.5ML NEB PRN (01:51)
[2018-09-04] MEDS ORDERED: ACETAMINOPHEN 500 MG TAB PO PRN (01:51)
[2018-09-04] MEDS ORDERED: ALBUTEROL 2.5 MG/3 ML NEB SOL NEB PRN (01:51)
[2018-09-04 02:11] VITALS: BMI 23.8
[2018-09-04 03:13] LABS: Absolute Lymphocytes (CBC) 0.4 K/uL (0.7-4.9); Absolute Monocytes 0.2 K/uL (0.1-1.3); Absolute Neutrophil 10.7 K/uL (1.8-8.0); Basophils % 0.1 % (0-1.3); Eosinophils % 0.1 % (0-4.4); Hematocrit 40.7 % (39.6-49.0); Lymphocytes % 3.9 % (15.3-44.8); MPV 7.1 fL (7.6-11.3); Monocytes % 2.1 % (3.3-12.3); RBC Red Blood Cell Count 3.98 M/uL (4.33-5.43)
[2018-09-04 03:25] LABS: BUN Blood Urea Nitrogen 10 mg/dL (7-18); Bicarbonate 31 mmol/L (21-32); Glucose Level 136 mg/dL (74-106); HDL Cholesterol 39 mg/dL (40-60); LDL Cholesterol, Calculated 109 (<130); Potassium 4.2 mmol/L (3.5-5.1); Sodium Level 138 mmol/L (136-145)
[2018-09-04 04:12] LABS: Blood Morphology Comment NOT SEEN (NOT SEEN); Platelet Estimate ADEQ; Urine White Blood Cell Casts OK
[2018-09-04 04:52] VITALS: O2SAT 93
[2018-09-04] MEDS: METHYLPREDNISOLONE 125 MG INJ IV SCH ×2 (05:25→12:00)
--- NOTE | 2018-09-04 07:36 | EKG ---
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
--- NOTE | 2018-09-04 07:37 | RAD REPORT ---
EXAM DESCRIPTION: CT - Chest For Pe Angio - 09/04/2018 5:49 am CLINICAL HISTORY: Chest pain COMPARISON: August 29, 2018 TECHNIQUE: Dynamically enhanced axial 3 mm thick images of the chest were obtained during administra tion of <100> mL Isovue 370 IV contrast. Coronal and oblique reconstruction images were generated and reviewed. Exam utilizes a protocol for optimal evaluation of pulmonary arterial tree.Preliminary rep ort generated by virtual radiologic and reviewed prior to dictation Maximum intensity projections 3D imaging was utilized All CT scans are performed using dose optimization technique as appropriate and may include automated exposure control or mA/KV adjustment according to patient size. FINDINGS: Evaluation of the peripheral pulmonary arteries is limited secondary to respiratory motion artifact. With A pulmonary embolus is not seen. A thoracic aortic aneurysm is not noted. A tiny left pleural effusion. A pericardial effusion is not seen. A lung consolidation is not present. COPD IMPRESSION: No evidence for a pulmonary embolism.
--- NOTE | 2018-09-04 07:56 | RAD REPORT ---
EXAM DESCRIPTION: Antonia Single View09/03/2018 10:47 pm CLINICAL HISTORY: Chest pain COMPARISON: July 2018 FINDINGS: Lungs are hyperaerated consistent with COPD. The lungs appear clear of acute infiltrate. The heart is normal size IMPRESSION: No acute abnormalities displayed
[2018-09-04 08:56] VITALS: BP 90/54
[2018-09-04] MEDS ORDERED: PANTOPRAZOLE 40MG TABLET PO SCH (09:00)
[2018-09-04] MEDS ORDERED: METOPROLOL TAR 50 MG TAB PO SCH (09:00)
[2018-09-04] MEDS ORDERED: APIXABAN 5 MG TABLET PO SCH (09:00)
[2018-09-04 09:41] VITALS: TEMP 99.6
--- NOTE | 2018-09-07 | CON ---
Date of Consultation: 09/04/2018 Reason For Consultation: Chest pain. History Of Present Illness: Mr. Clifton is a 77-year-old white male; has a history of atrial fibrilla tion, lung cancer, bladder cancer, gastroesophageal reflux disease, COPD and benign prostatic hypertr ophy. He came in with sharp stabbing chest pain over the left chest without any nausea or vomiting o r diaphoresis. He is slightly short of breath. Denied any fever but had some chills. His symptoms were worse with breathing. His chest pain did not radiate anywhere. It was not exertional. By the time I saw him, he is already ruled out. He had a white count of 11.4, glucose of 136. He was hypot ensive at 90/54. Allergies: NONE. Review of Systems: Negative. Social History: Negative. Family History: Noncontributory. Medications: Include prednisone, inhalers, Eliquis, metoprolol, Protonix and Flomax. Physical Examination: Vital Signs: Stable, afebrile, sinus rhythm. HEENT: Negative. Neck: Supple with no bruit. Chest: Clear. Cardiac: Exam revealed a regular rhythm and rate with occasional ectopy and an aortic sclerosis murm ur. No gallops or rubs. Abdomen: Benign. Extremities: Revealed no clubbing, cyanosis, or edema. Pulses were present in both dorsalis pedis and posterior tibial. Neurologic: He was intact. Skin: Dry and intact. Diagnostic Data: As stated earlier. Impression And Plan: 1.Atypical chest pain. He had a negative Lexiscan a year ago. Chest pain sounds more of pleurisy. I think his symptoms in general are probably more viral syndrome type. 2.History of atrial fibrillation. He had a normal echocardiogram in April of 2018. He is on El iquis and metoprolol and we will continue that. 3.Chronic obstructive pulmonary disease on inhalers and prednisone. 4.Benign prostatic hypertrophy on Flomax. 5.Gastroesophageal reflux disease on Protonix. 6.History of lung cancer and bladder cancer, both are cured at this point. I do not see the need of ordering any more invasive studies on Mr. Clifton considering his recent hist ory. We will be happy to see him in the office as an outpatient. He can go home whenever it is okay with Dr. Epstein. WILDER/MODL Voice ID: [id number] Report ID: [id number]
== END 2018-09-04 12:55 | disposition home or self-care (01) ==
LOC: ER 22:11 → ERHOLD 23:38 → 4TH 09-04 01:27
PROVIDERS: ADMIT Internal Medicine; ATTEND Internal Medicine
DX: R07.9 Chest pain, unspecified (principal); I48.91 Unspecified atrial fibrillation; J44.9 Chronic obstructive pulmonary disease, unspecified; I10 Essential (primary) hypertension; Z79.01 Long term (current) use of anticoagulants; Z85.118 Personal history of other malignant neoplasm of bronchus and lung; Z85.51 Personal history of malignant neoplasm of bladder
CPT/HCPCS: 36415; 71045; 71275; 80048 ×2; 80061; 80076; 83690; 83735; 83880; 84484 ×3; 85025 ×2; 85610; 87040 ×2; 93005; 96361; 96365; 96367; 96375; 99285; G0378 ×2; J0456; J0696; J2405; J2930 ×2; J7030; Q9967

== ENCOUNTER 2019-01-04 15:32 | Observation (INO) | payer OTHER, BC ==
--- OUTSIDE RECORDS SUMMARY | 2019-01-04 15:34 | XMS REPORT ---
:1940 Author Organization [employer] Care Team Providers Name Role Phone Shane Epstein Provider Role Unavailable Allergies, Adverse Reactions, Alerts Substance Reaction Event Type N.K.D.A. 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 Active Problem Mild depression F32.0 Active Problem Malignant neoplasm of unspecified C34.90 Active part of unspecified bronchus or lung Problem GERD without esophagitis K21.9 Active Problem Mass of upper lobe of left lung R91.8 Active Problem History of CVA (cerebrovascular Z86.73 Active accident) without residual deficits Medications Medication Code Code Instructions Start End Status Dosage System Date Date Symbicort [facility] 59327951782 160-4.5 MCG/ACT Active 2 puffs Inhalation Twice a day Pantoprazole ND 98318174201 40 Orally Once Active 1 tablet Sodium a day Pantoprazole [facility] 21060383442 40 MG Orally Active 1 tablet Sodium Once a day Ventolin HFA [facility] 50410824539 90 MCG/ACT Active 2 puffs Inhalation as needed every 6 hrs PRN Apixaban [facility] [address]-57 5 MG Orally Active 1 tab Twice a day Apixaban ND 42241648188 5 Orally Twice Active 1 tab a day Metoprolol ND 80175305794 50 MG Orally Active 1 tablet Tartrate Twice a day with food Spiriva Respimat ND 86183045561 2.5 microgram Active 2 puffs Inhaled Once a day Results No Known Results Summary Purpose [employer] Submission
--- OUTSIDE RECORDS SUMMARY | 2019-01-04 15:34 | XMS REPORT ---
[...] End Date Status Dosage System Date Spiriva [facility] 63119385742 2.5 microgram November Active 2 puffs Respimat Inhaled Once a 2018 day Symbicort ND 70154875671 160-4.5 MCG/ACT Jun 04December 31, Active 2 puffs Inhalation 2017 2018 Twice a day Ventolin HFA ND 66707164754 90 MCG/ACT Active 2 puffs Inhalation as needed every 6 hrs PRN Pantoprazole ND 82633701773 40 MG Orally Active 1 tablet Sodium Once a day Apixaban [facility] [address]-79 5 MG Orally Active 1 tab Twice a day Metoprolol ND 65004812585 50 MG Orally Active 1 tablet Tartrate Twice a day with food PredniSONE ND 68302248448 20 MG Orally Active 1 tablet Once a day Results No Known Results Summary Purpose [employer] Submission
--- OUTSIDE RECORDS SUMMARY | 2019-01-04 15:34 | XMS REPORT ---
[...] End Status Dosage System Date Date Pantoprazole [facility] 24382351512 40 MG Orally Active 1 tablet Sodium Once a day Results No Known Results Summary Purpose [employer] Submission
--- OUTSIDE RECORDS SUMMARY | 2019-01-04 15:34 | XMS REPORT ---
:1940 Author Organization [employer] Care Team Providers Name Role Phone Lucian Shane Provider Role Unavailable Allergies, Adverse Reactions, Alerts Substance Reaction Event Type N.K.D.A. 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 Active Problem History of CVA (cerebrovascular Z86.73 Active accident) without residual deficits Problem Malnutrition, unspecified type E46 Active Problem Chronic obstructive pulmonary J44.9 Active disease, unspecified COPD type Problem Atrial fibrillation, unspecified I48.91 Active type Problem Malignant neoplasm of unspecified C34.90 Active part of unspecified bronchus or lung Problem GERD without esophagitis K21.9 Active Assessment Mass of upper lobe of left lung R91.8 Active Assessment Malignant neoplasm of unspecified C34.90 Active part of unspecified bronchus or lung Assessment Atrial fibrillation, unspecified I48.91 Active type Assessment 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 Active Assessment Chronic obstructive pulmonary J44.9 Active disease, unspecified COPD type Medications Medication Code Code Instructions Start End Date Status Dosage System Date Symbicort [facility] 40795686050 160-4.5 MCG/ACT Active 2 puffs Inhalation Twice a day Pantoprazole ND 59936983826 40 Orally Once Active 1 tablet Sodium a day Apixaban [facility] 62521267765 5 Orally Twice Active 1 tab a day Ventolin HFA ND 29085996086 90 MCG/ACT Active 2 puffs Inhalation as needed every 6 hrs PRN Spiriva ND 80817851110 2.5 microgram Active 2 puffs Respimat Inhaled Once a day Apixaban [facility] [address]-66 5 MG Orally Active 1 tab Twice a day Metoprolol ND 60786645935 50 MG Orally Active 1 tablet Tartrate Twice a day with food Azithromycin ND 27084990234 250 MG Orally October Active 2 tablets Once a day 2018 on the first day, then 1 tablet daily for 4 days Pantoprazole [facility] 06669836428 40 MG Orally Active 1 tablet Sodium Once a day Results Name Result Date Reference Range Unit Abnormality Flag Chest Pa And Lat (2 Views) Summary Purpose [employer]ClinicalWorks Submission
--- OUTSIDE RECORDS SUMMARY | 2019-01-04 15:34 | XMS REPORT ---
:1940 Author Organization [employer] Care Team Providers Name Role Phone Shane Epstein Provider Role Unavailable Allergies, Adverse Reactions, Alerts Substance Reaction Event Type N.K.D.A. 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 Active Assessment GERD without esophagitis K21.9 Active Assessment Mass of upper lobe of left lung R91.8 Active Assessment Atrial fibrillation, unspecified I48.91 Active type Medications Medication Code Code Instructions Start End Status Dosage System Date Date PredniSONE [facility] 51596927980 20 MG Orally Active 1 tablet Once a day Apixaban [facility] [address]-21 5 MG Orally Active 1 tab Twice a day Symbicort [facility] 01419096013 160-4.5 MCG/ACT Active 2 puffs Inhalation Twice a day Ventolin HFA [facility] 67814959764 90 MCG/ACT Active 2 puffs Inhalation as needed every 6 hrs PRN Pantoprazole [facility] 38765644721 40 MG Orally Active 1 tablet Sodium Once a day Apixaban ND 35757502264 5 Orally Twice Active 1 tab a day Pantoprazole [facility] 63382542198 40 Orally Once Active 1 tablet Sodium a day Metoprolol [facility] 53721922617 50 MG Orally Active 1 tablet Tartrate Twice a day with food Spiriva Respimat [facility] 32944147143 2.5 microgram Active 2 puffs Inhaled Once a day Results No Known Results Summary Purpose eClinicalWorks Submission
[2019-01-04] MEDS ORDERED: ALBUTEROL 2.5 MG/3 ML NEB SOL ONE (16:11)
[2019-01-04] MEDS ORDERED: ASPIRIN 81 MG CHEWABLE TABLET ONE (16:11)
[2019-01-04] MEDS ORDERED: IPRATROPIUM BROM 0.5MG/2.5ML ONE (16:11)
[2019-01-04] MEDS ORDERED: METHYLPREDNISOLONE 125 MG INJ ONE (16:11)
[2019-01-04] MEDS ORDERED: Magnesium Sulfate 2gm IVPB 2 G/50 ML BAG IV ONE (16:12)
--- NOTE | 2019-01-04 16:12 | EKG ---
Test Date: 2019-01-04 Test Time: 16:08:42 End Trimmer: CHAITANYA MEASUREMENT RESULTS: Intervals: Rate: 80 CO: 176 QRSD: 122 QT: 362 QTc: 417 [place]: P: 0 CO: 176 QRS: -52 T: 45 INTERPRETIVE STATEMENTS: Sinus rhythm with premature atrial complexes Left axis deviation Right bundle branch block T wave abnormality, consider lateral ischemia Abnormal ECG Compared to ECG 09/03/2018 22:25:52 Atrial premature complex(es) now present Left-axis deviation now present Right bundle-branch block now present T-wave abnormality now present Possible ischemia now present Electronically Signed On 01-04-19 16:11:39 CDT by Norbert Jose
[2019-01-04 16:15] LABS: Absolute Lymphocytes (CBC) 1.9 K/uL (0.7-4.9); Absolute Monocytes 1.2 K/uL (0.1-1.3); Absolute Neutrophil 6.5 K/uL (1.8-8.0); Basophils % 0.9 % (0-1.3); Eosinophils % 2.3 % (0-4.4); Lymphocytes % 19.3 % (15.3-44.8); MPV 7.2 fL (7.6-11.3); Monocytes % 12.4 % (3.3-12.3); Protime INR 1.35; RBC Red Blood Cell Count 4.45 M/uL (4.33-5.43)
--- NOTE | 2019-01-04 16:24 | RAD REPORT ---
EXAM DESCRIPTION: RAD - Chest Single View - 01/04/2019 4:17 pm CLINICAL HISTORY: Cough, chest pain, shortness of breath COMPARISON: October 2018 TECHNIQUE: AP portable chest image was obtained 1608 hours . FINDINGS: Fibrotic an obstructive lung pattern is present. No consolidation or mass. Lung markings d o appear slightly increased over the comparison suggesting edema or interstitial infiltrate. Heart an d vasculature are normal. No measurable pleural effusion and no pneumothorax. No acute bony abnormali ty seen. No acute aortic findings suspected. IMPRESSION: COPD findings with a slight increase in interstitial pattern in the lower lung kee. Interstitial edema or infiltrate superimposed on COPD suspected.
[2019-01-04 16:33] LABS: ALT/SGPT 20 U/L (12-78); AST/SGOT 10 U/L (15-37); Albumin 3.5 g/dL (3.4-5.0); Alkaline Phosphatase 89 U/L (45-117); BUN Blood Urea Nitrogen 9 mg/dL (7-18); Bicarbonate 30 mmol/L (21-32); Bilirubin Direct 0.2 mg/dL (0-0.2); Bilirubin Total 0.7 mg/dL (0.2-1.0); Glucose Level 97 mg/dL (74-106); Magnesium 2.3 mg/dL (1.8-2.4); NT PRO-BNP 102 pg/mL (<450); Potassium 3.8 mmol/L (3.5-5.1); Protein, Total 6.7 g/dL (6.4-8.2); Sodium Level 139 mmol/L (136-145); Troponin (Emerg Dept Use Only) < 0.02 ng/mL (0.0-0.045)
--- NOTE | 2019-01-04 17:48 | ER ---
Nurse's Notes [facility] Name: Roly Clifton Age: 78 yrs Sex: Male : 1940 Arrival Date: 01/04/2019 Time: 15:35 Bed 16 Private MD: Diagnosis: Chronic obstructive pulmonary disease with acute lower respiratory infection;Tachypnea, not elsewhere classified Presentation: 01/04 15:30 Presenting complaint: Patient states: i have been feeling short of breath for a couple tw2 of days now, just coughing and i cant breathe, pt does not use oxygen at home. Transition of care: patient was not received from another setting of care. Onset of symptoms was January 04, 2019. Risk Assessment: Do you want to hurt yourself or someone else? Patient reports no desire to harm self or others. Initial Sepsis Screen: Does the patient meet any 2 criteria? RR > 20 per min. No. Patient's initial sepsis screen is negative. Does the patient have a suspected source of infection? No. Patient's initial sepsis screen is negative. Care prior to arrival: None. 15:30 Method Of Arrival: Ambulatory tw2 15:30 Acuity: MASON 2 tw2 Triage Assessment: 15:39 General: Appears distressed, unkempt, Behavior is cooperative, anxious. Pain: Denies tw2 pain. Respiratory: Reports shortness of breath at rest on exertion cough that is Airway is patent Respiratory effort is labored, using tripod position, Respiratory pattern is tachypnea Onset: The symptoms/episode began/occurred "couple of days now", the patient has moderate shortness of breath. Historical: - Allergies: 15:41 NKA; tw2 - PMHx: 15:41 Arrythmia; Bladder cancer; COPD; CVA; Lung Cancer; tw2 - PSHx: 15:41 Bladder tumor removal; tw2 - Immunization history:: Adult Immunizations. - Social history:: Smoking status: Patient uses tobacco products, smokes one pack cigarettes per day. - Ebola Screening: : Patient denies travel to an Ebola-affected area in the 21 days before illness onset. Screenin:08 Abuse screen: Denies threats or abuse. Denies injuries from another. Nutritional hb screening: No deficits noted. Tuberculosis screening: No symptoms or risk factors identified. Fall Risk None identified. Assessment: 15:45 General: Appears distressed, Behavior is calm, cooperative. Pain: Denies pain. Neuro: hb Level of Consciousness is awake, alert, obeys commands, Oriented to person, place, time, situation. Cardiovascular: Heart tones S1 S2 present Capillary refill < 3 seconds Patient's skin is warm and dry. Rhythm is regular. Respiratory: Airway is patent Respiratory effort is labored, Respiratory pattern is tachypnea Breath sounds are coarse bilaterally. GI: No signs and/or symptoms were reported involving the gastrointestinal system. : No signs and/or symptoms were reported regarding the genitourinary system. EENT: No signs and/or symptoms were reported regarding the EENT system. Derm: Skin is intact, is healthy with good turgor, Skin is pink, warm \\T\\ dry. Musculoskeletal: No signs and/or symptoms reported regarding the musculoskeletal system. 16:45 Reassessment: Patient and/or family updated on plan of care and expected duration. Pain hb level reassessed. Patient is alert, oriented x 3, equal unlabored respirations, skin warm/dry/pink. Breathing is mildly labored, pt reports symptom relief, SPO2 95% on 2LNC. 17:30 Reassessment: Patient appears in no apparent distress at this time. Patient and/or hb family updated on plan of care and expected duration. Pain level reassessed. Patient is alert, oriented x 3, equal unlabored respirations, skin warm/dry/pink. 18:28 Reassessment: Patient appears in no apparent distress at this time. No changes from hb previously documented assessment. Patient and/or family updated on plan of care and expected duration. Pain level reassessed. 19:10 Reassessment: Patient appears in no apparent distress at this time. Patient and/or jb4 family updated on plan of care and expected duration. Pain level reassessed. Patient is alert, oriented x 3, equal unlabored respirations, skin warm/dry/pink. 19:50 Reassessment: Patient appears in no apparent distress at this time. Patient and/or jb4 family updated on plan of care and expected duration. Pain level reassessed. Patient is alert, oriented x 3, equal unlabored respirations, skin warm/dry/pink. PT taken upstairs by senior cytogenetic technologist. IV fluids stopped during transfer. Family with pt. Vital Signs: 15:30 BP 113 / 70; Pulse 85; Resp 26; Temp 98.4(O); Pulse Ox 90% on R/A; Weight 81.65 kg (R); tw2 Height 6 ft. 3 in. (190.50 cm); Pain 0/10; 16:30 BP 136 / 86; Pulse 82; Resp 22; Pulse Ox 96% on 2 lpm NC; hb 17:23 BP 111 / 64; Pulse 84; Resp 23; Pulse Ox 94% on 2 lpm NC; Pain 0/10; hb 18:29 BP 120 / 71; Pulse 91; Resp 21; Pulse Ox 95% on 2 lpm NC; hb 19:30 BP 133 / 66; Pulse 94; Resp 20; Temp 97.7(O); Pulse Ox 94% on 2 lpm NC; jb4 15:30 Body Mass Index 22.50 (81.65 kg, 190.50 cm) tw2 15:30 pt placed on o2 via 2L nc at this time. tw2 ED Course: 15:35 Patient arrived in ED. mr 15:35 Thierry Mccullough PA is PHCP. cp 15:35 Preston Huitron MD is Attending Physician. cp 15:35 Mariposa Bennett RN is Primary Nurse. hb 15:39 Triage completed. tw2 15:39 Arm band placed on. tw2 16:02 Initial lab(s) drawn, by me, sent to lab. Inserted saline lock: 20 gauge in left wrist, ms using aseptic technique. Blood collected. 16:07 Patient has correct armband on for positive identification. Bed in low position. Call hb light in reach. Side rails up X 1. 16:08 EKG done, by claims technician. reviewed by Thierry GODOY. dt2 16:18 XRAY Chest (1 view) In Process Unspecified. EDMS 17:46 Marlene Quintero MD is Hospitalizing Provider. cp 19:50 No provider procedures requiring assistance completed. Patient admitted, IV remains in jb4 place. Administered Medications: 16:06 Drug: Aspirin Chewable Tablet 324 mg Route: PO; hb 16:45 Follow up: Response: No adverse reaction hb 16:06 Drug: SOLU-Medrol 125 mg Route: IVP; Site: left forearm; hb 16:45 Follow up: Response: No adverse reaction hb 16:06 Drug: Magnesium Sulfate 2 grams Route: IVPB; Infused Over: 2 hrs; Site: left forearm; hb 18:43 Follow up: Response: No adverse reaction; IV Status: Completed infusion; IV Intake: 50mlhb 16:06 Drug: Albuterol - atroVENT (3:1) (2.5 mg - 0.5 mg) 3 ml Route: Nebulizer; hb 17:00 Follow up: Response: No adverse reaction hb 18:43 Drug: LevaQUIN 750 mg Volume: 150 ml; Route: IVPB; Infused Over: 90 mins; Site: left hb forearm; 19:52 Follow up: Response: No adverse reaction; IV Status: Infusion continued upon admission jb4 Intake: 18:43 IV: 50ml; Total: 50ml. hb Outcome: 17:47 Decision to Hospitalize by Provider. cp 19:50 Admitted to Med/surg accompanied by tech, family with patient, via wheelchair, room jb4 202, with oxygen, with chart, Report called to BECKIE Aragon 19:50 Condition: stable 19:50 Discharge instructions given to patient, family, Instructed on the need for admit, Demonstrated understanding of instructions. 19:52 Patient left the ED. jb4 Signatures: Dispatcher [employer] EDWV Selin Anderson mr Roland, Jenise ms Thierry Mccullough, JAYNE PA cp Mariposa Bennett, RN RN Debra Connors RN RN 2 Deni Greenwood RN RN jb4 Eugenie Garcia dt2
--- NOTE | 2019-01-04 17:48 | EDPHYS ---
Physician Documentation [facility] Name: Royl Clifton Age: 78 yrs Sex: Male : 1940 Arrival Date: 01/04/2019 Time: 15:35 Bed 16 Private MD: ED Physician Preston Huitron HPI: 01/04 15:50 This 78 yrs old Male presents to ER via Ambulatory with complaints of cp Shortness Of Breath. 15:50 The patient has shortness of breath at rest. Onset: The symptoms/episode began/occurred cp last week. Duration: The symptoms are continuous, and are steadily getting worse. Associated signs and symptoms: Pertinent positives: chest pain, productive cough, fever, upper back pain, Pertinent negatives: diaphoresis, hemoptysis. The patient has experienced similar episodes in the past, multiple times. Historical: - Allergies: 15:41 NKA; tw2 - PMHx: 15:41 Arrythmia; Bladder cancer; COPD; CVA; Lung Cancer; tw2 - PSHx: 15:41 Bladder tumor removal; tw2 - Immunization history:: Adult Immunizations. - Social history:: Smoking status: Patient uses tobacco products, smokes one pack cigarettes per day. - Ebola Screening: : Patient denies travel to an Ebola-affected area in the 21 days before illness onset. ROS: 15:52 Eyes: Negative for injury, pain, redness, and discharge. cp 15:52 Constitutional: Positive for chills, Negative for body aches, fever, poor PO intake. 15:52 ENT: Positive for difficulty swallowing, Negative for drainage from ear(s), ear pain, sore throat, difficulty handling secretions. 15:52 Cardiovascular: Positive for chest pain, Negative for edema, palpitations. 15:52 Respiratory: Positive for cough, shortness of breath, at rest. Negative for hemoptysis, wheezing. 15:52 Abdomen/GI: Negative for abdominal pain, vomiting, diarrhea, constipation. 15:52 Back: Positive for pain at rest, pain with movement, of the left scapular area and left subscapular area. 15:52 : Negative for urinary symptoms, flank pain, testicular pain 15:52 Skin: Negative for rash. 15:52 Neuro: Positive for weakness of legs, Negative for altered mental status, dizziness, headache. 15:52 All other systems are negative. Exam: 16:00 Constitutional: The patient appears in no acute distress, alert, awake, cp non-diaphoretic, non-toxic, well developed, well nourished. 16:00 Head/Face: Normocephalic, atraumatic. cp 16:00 Eyes: Periorbital structures: appear normal, Conjunctiva: normal, no exudate, no injection, Sclera: no appreciated abnormality, Lids and lashes: appear normal, bilaterally. 16:00 ENT: External ear(s): are unremarkable, Ear canal(s): are normal, clear, TM's: bulging, is not appreciated, bilaterally, dullness, bilaterally, erythema, is not appreciated, bilaterally, Nose: is normal, Mouth: Lips: moist, Oral mucosa: pink and intact, moist, Posterior pharynx: is normal, airway is patent, no erythema, no exudate. 16:00 Neck: ROM/movement: is normal, is supple, without pain, no range of motions limitations, no meningismus, no nuchal rigidity. 16:00 Chest/axilla: Inspection: normal, Palpation: is normal, no crepitus, no tenderness. 16:00 Cardiovascular: Rate: normal, Rhythm: regular, Edema: is not appreciated, JVD: is not appreciated. 16:00 Respiratory: the patient does not display signs of respiratory distress, Respirations: labored breathing, that is mild, tachypnea, that is mild, Breath sounds: decreased breath sounds, that are moderate, throughout, stridor, is not appreciated, wheezing: is not appreciated. 16:00 Abdomen/GI: Inspection: abdomen appears normal, Bowel sounds: active, all quadrants, Palpation: abdomen is soft and non-tender, in all quadrants. 16:00 Back: pain, that is mild, of the left scapular area and left subscapular area, ROM is normal. 16:00 Skin: no rash present. 16:00 Neuro: Orientation: to person, place \T\ time. Mentation: is normal, Motor: moves all fours. Vital Signs: 15:30 BP 113 / 70; Pulse 85; Resp 26; Temp 98.4(O); Pulse Ox 90% on R/A; Weight 81.65 kg (R); tw2 Height 6 ft. 3 in. (190.50 cm); Pain 0/10; 16:30 BP 136 / 86; Pulse 82; Resp 22; Pulse Ox 96% on 2 lpm NC; hb 17:23 BP 111 / 64; Pulse 84; Resp 23; Pulse Ox 94% on 2 lpm NC; Pain 0/10; hb 18:29 BP 120 / 71; Pulse 91; Resp 21; Pulse Ox 95% on 2 lpm NC; hb 19:30 BP 133 / 66; Pulse 94; Resp 20; Temp 97.7(O); Pulse Ox 94% on 2 lpm NC; jb4 15:30 Body Mass Index 22.50 (81.65 kg, 190.50 cm) tw2 15:30 pt placed on o2 via 2L nc at this time. tw2 MDM: 15:35 Patient medically screened. cp 17:46 Data reviewed: vital signs, nurses notes, lab test result(s), EKG, radiologic studies, cp plain films, I have discussed the patient's presentation/case with the attending Emergency Department Physician; and as a result, I will admit patient. 17:46 Test interpretation: by ED physician or midlevel provider: ECG, plain radiologic cp studies. Physician consultation: Marlene Quintero MD was called at 17:40, was contacted at 17:40, regarding admission, to the telemetry unit. patient's condition. 01/04 15:49 Order name: Basic Metabolic Panel 01/04 15:49 Order name: CBC with Diff cp 01/04 15:49 Order name: LFT's cp 01/04 15:49 Order name: Magnesium cp 01/04 15:49 Order name: NT PRO-BNP; Complete Time: 17:38 cp 01/04 15:49 Order name: PT-INR; Complete Time: 17:38 cp 01/04 17:38 Interpretation: Reviewed. cp 01/04 15:49 Order name: Troponin (emerg Dept Use Only); Complete Time: 17:38 cp 01/04 17:39 Interpretation: Reviewed. cp 01/04 15:49 Order name: XRAY Chest (1 view); Complete Time: 17:38 cp 01/04 15:49 Order name: Urine Microscopic Only cp 01/04 15:50 Order name: Basic Metabolic Panel; Complete Time: 17:38 EDMS 01/04 15:50 Order name: CBC with Automated Diff; Complete Time: 16:16 EDMS 01/04 16:16 Interpretation: Normal except: MCV 99.0; RDW 15.5; MPV 7.2; MN% 12.4. cp 01/04 15:50 Order name: Liver (Hepatic) Function; Complete Time: 17:38 EDMS 01/04 15:50 Order name: Magnesium; Complete Time: 17:38 EDMS 01/04 16:17 Order name: Influenza Screen (a \T\ B) cp 01/04 15:49 Order name: EKG; Complete Time: 15:51 cp 01/04 15:49 Order name: Cardiac monitoring; Complete Time: 16:07 cp 01/04 15:49 Order name: EKG - Nurse/Tech; Complete Time: 16:07 cp 01/04 15:49 Order name: IV Saline Lock; Complete Time: 16:07 cp 01/04 15:49 Order name: Labs collected and sent; Complete Time: 16:07 cp 01/04 15:49 Order name: O2 Per Protocol; Complete Time: 16:07 cp 01/04 15:49 Order name: O2 Sat Monitoring; Complete Time: 16:07 cp Administered Medications: 16:06 Drug: Aspirin Chewable Tablet 324 mg Route: PO; hb 16:45 Follow up: Response: No adverse reaction hb 16:06 Drug: SOLU-Medrol 125 mg Route: IVP; Site: left forearm; hb 16:45 Follow up: Response: No adverse reaction hb 16:06 Drug: Magnesium Sulfate 2 grams Route: IVPB; Infused Over: 2 hrs; Site: left forearm; hb 18:43 Follow up: Response: No adverse reaction; IV Status: Completed infusion; IV Intake: 50mlhb 16:06 Drug: Albuterol - atroVENT (3:1) (2.5 mg - 0.5 mg) 3 ml Route: Nebulizer; hb 17:00 Follow up: Response: No adverse reaction hb 18:43 Drug: LevaQUIN 750 mg Volume: 150 ml; Route: IVPB; Infused Over: 90 mins; Site: left hb forearm; 19:52 Follow up: Response: No adverse reaction; IV Status: Infusion continued upon admission jb4 Disposition: 01/05 19:18 Co-signature as Attending Physician, Preston Huitron MD I agree with the assessment and kdr plan of care. Disposition: 05/10/19 17:47 Hospitalization ordered by Marlene Quintero for Observation. Preliminary diagnosis are Chronic obstructive pulmonary disease with acute lower respiratory infection, Tachypnea, not elsewhere classified. - Bed requested for Telemetry/MedSurg (observation). - Status is Observation. jb4 - Condition is Stable. - Problem is an acute exacerbation. - Symptoms have improved. UTI on Admission? No Signatures: Dispatcher [employer] EDMS Kandi Downing RN RN dw Preston Huitron MD MD [facility] Thierry Mccullough PA PA cp Mariposa Bennett RN RN Debra Connors RN RN tw2 Deni Greenwood RN RN jb4 Corrections: (The following items were deleted from the chart) 01/04 17:49 17:47 Hospitalization Ordered by Marlene Quintero MD for Observation. Preliminary diagnosis cp is Chronic obstructive pulmonary disease with acute lower respiratory infection. Bed requested for Telemetry/MedSurg (observation). Status is Observation. Condition is Stable. Problem is an acute exacerbation. Symptoms have improved. UTI on Admission? No. cp 18:37 17:49 01/04/2019 17:47 Hospitalization Ordered by Marlene Quintero MD for Observation. dw Preliminary diagnosis is Chronic obstructive pulmonary disease with acute lower respiratory infection; Tachypnea, not elsewhere classified. Bed requested for Telemetry/MedSurg (observation). Status is Observation. Condition is Stable. Problem is an acute exacerbation. Symptoms have improved. UTI on Admission? No. cp 19:52 15:49 Urine Dipstick-Ancillary ordered. cp jb4 19:52 18:37 01/04/2019 17:47 Hospitalization Ordered by Marlene Quintero MD for Observation. jb4 Preliminary diagnosis is Chronic obstructive pulmonary disease with acute lower respiratory infection; Tachypnea, not elsewhere classified. Bed requested for Telemetry/MedSurg (observation). Status is Observation. Condition is Stable. Problem is an acute exacerbation. Symptoms have improved. UTI on Admission? No. dw
[2019-01-04] MEDS ORDERED: Levofloxacin 750mg IV 750 MG/150 ML BAG IV ONE (18:53)
[2019-01-04] MEDS: ALBUTEROL 2.5 MG/3 ML NEB SOL NEB SCH ×2 (20:02→23:00)
[2019-01-04] MEDS: IPRATROPIUM BROM 0.5MG/2.5ML NEB SCH ×2 (20:02→23:00)
[2019-01-04 23:07] VITALS: BMI 24.5
[2019-01-05] MEDS: METHYLPREDNISOLONE 40 MG INJ IV SCH ×2 (00:43→08:47)
[2019-01-05] MEDS: IPRATROPIUM BROM 0.5MG/2.5ML NEB SCH ×3 (02:00→14:20)
[2019-01-05] MEDS: ALBUTEROL 2.5 MG/3 ML NEB SOL NEB SCH ×3 (02:00→14:20)
[2019-01-05] MEDS ORDERED: TEMAZEPAM 15 MG CAP PO ONE (03:39)
[2019-01-05 03:47] LABS: Urine Appearance CLEAR; Urine Bilirubin NEGATIVE (NEG); Urine Blood NEGATIVE (NEG); Urine Color YELLOW; Urine Glucose NEGATIVE (NEG); Urine Protein NEGATIVE (NEG); Urine pH 6.5 (5.0-7.0)
[2019-01-05 03:50] LABS: Urine Microscopic Reflex NO UMIC
[2019-01-05 06:03] LABS: Absolute Lymphocytes (CBC) 0.6 K/uL (0.7-4.9); Absolute Monocytes 0.1 K/uL (0.1-1.3); Absolute Neutrophil 5.2 K/uL (1.8-8.0); Hematocrit 41.6 % (39.6-49.0); Lymphocytes % 9.7 % (15.3-44.8); MPV 7.5 fL (7.6-11.3); Monocytes % 2.2 % (3.3-12.3); RBC Red Blood Cell Count 4.21 M/uL (4.33-5.43)
[2019-01-05 06:18] LABS: ALT/SGPT 18 U/L (12-78); AST/SGOT 6 U/L (15-37); Albumin 3.1 g/dL (3.4-5.0); Alkaline Phosphatase 84 U/L (45-117); BUN Blood Urea Nitrogen 11 mg/dL (7-18); Bicarbonate 29 mmol/L (21-32); Bilirubin Total 0.4 mg/dL (0.2-1.0); Glucose Level 189 mg/dL (74-106); Phosphorus 2.6 mg/dL (2.5-4.9); Potassium 4.4 mmol/L (3.5-5.1); Protein, Total 6.3 g/dL (6.4-8.2); Sodium Level 140 mmol/L (136-145)
[2019-01-05 08:49] LABS: Blood Morphology Comment NOT SEEN (NOT SEEN); Platelet Estimate ADEQ; Urine White Blood Cell Casts OK
--- NOTE | 2019-01-05 08:54 | P.HP ---
Certification for Inpatient Patient admitted to: Observation With expected LOS: <2 Midnights Patient will require the following post-hospital care: None Practitioner: I am a practitioner with admitting privileges, knowledge of patient current condition, hospital course, and medical plan of care. Services: Services provided to patient in accordance with Admission requirements found in Title 42 Section 412.3 of the Code of Federal Regulations Patient History Date of Service: 01/05/19 Reason for admission: Acute COPD exacerbation/CHF exacerbation, acute diastolic dysfunction History of Present Illness: Patient is a 78-year-old gentleman who came into the hospital with shortness of breath. Patient has had multiple admissions over the last few years with similar complaints. Patient was started on nebs, steroids, and antibiotics. Patient is clinically feeling somewhat better. Patient is still wheezing and coughing quite a bit. Patient also has some JVP distention. Patient's last echo did not reveal any decrease of ejection fraction. However, patient possibly has some diastolic dysfunction. Will go ahead and do some IV diuretics as well. We will monitor patient very closely. Allergies No Known Allergies Allergy (Verified 01/04/19 20:07) Home Medications: Apixaban [Eliquis] 5 mg PO BID #60 tablet 05/16/18 Budesonide/Formoterol Fumarate [Symbicort 160-4.5 Mcg Inhaler] 2 puff IH BID #1 hfa.aer.ad 05/16/18 Metoprolol Tartrate 50 mg PO BID #60 tablet 05/16/18 Pantoprazole [Protonix Tab*] 40 mg PO DAILY #30 tab 05/16/18 Albuterol Inhaler [Ventolin Inhaler*] 2 puff IH Q6H PRN 09/04/18 Tamsulosin [Flomax*] 0.4 mg PO DAILY 09/04/18 Albuterol Sulfate [Proair Hfa] 2 puff IH TID PRN 01/05/19 Tiotropium [place] [Spiriva Respimat] 2 puff IH DAILY 01/05/19 - Past Medical/Surgical History Has patient received pneumonia vaccine in the past: Yes Diabetic: No -: COPD -: Lung Cancer -: Bladder Cancer -: 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 moist/pink, EOMI, Sclerae nonicteric Neck: Supple, No LAD, Bruit, JVD distended Respiratory: Diminished, Crackles/rales, Expiratory wheezes Cardiovascular: Regular rate/rhythm, Normal S1 S2, Systolic murmur Gastrointestinal: Normal bowel sounds, Soft and benign, Non-distended, No tenderness Musculoskeletal: No clubbing, No swelling, No tenderness Integumentary: No rashes Neurological: Normal gait, Normal speech, Normal strength at 5/5 x4 extr, Normal tone, Sensation intact, Cranial nerves 3-12 intact, Normal affect Lymphatics: No axilla or inguinal lymphadenopathy - Studies Laboratory Data (last 24 hrs) 01/04/19 16:00: PT 15.7 H, INR 1.35 01/04/19 16:00: WBC 9.9, Hgb 14.7, Hct 44.0, Plt Count 268 01/04/19 16:00: Sodium 139, Potassium 3.8, BUN 9, Creatinine 0.71, Glucose 97, Magnesium 2.3, Total Bilirubin 0.7, AST 10 L, ALT 20, Alkaline Phosphatase 89 Microbiology Data (last 24 hrs): 01/04/19 17:25 Nasopharnyx Influenza Type A Antigen Screen - Final 01/04/19 17:25 Nasopharnyx Influenza Type B Antigen Screen - Final Assessment & Plan - Problems (Diagnosis) (1) Acute diastolic CHF (congestive heart failure) Current Visit: Yes Status: Acute (2) COPD with acute exacerbation Current Visit: Yes Status: Acute (3) Chest pain Onset Date: 09/04/18 Current Visit: No Status: Acute Qualifiers: (4) Lung cancer Onset Date: 05/15/18 Current Visit: No Status: Acute Qualifiers: (5) New onset atrial flutter Onset Date: 05/15/18 Current Visit: No Status: Acute - Plan Plan: 1. Continue with albuterol and Atrovent nebs 2. Continue with IV steroids 3. Continue with gentle diuresing 4. Repeat chest x-ray in the morning 5. Continue with IV antibiotic 6. Continue with Lopressor and anticoagulation for AFib 7. GI and DVT prophylax Discharge Plan: Home Plan to discharge in: 48 Hours - Advance Directives Does patient have a Living Will: Yes Does patient have a Durable POA for Healthcare: Yes - Code Status/Comfort Care Code Status Assessed: Yes Code Status: Full Code Critical Care: No Time Spent Managing PTS Care (In Minutes): 45
[2019-01-05] MEDS ORDERED: TAMSULOSIN 0.4 MG SR CAP PO SCH (09:00)
[2019-01-05] MEDS ORDERED: PANTOPRAZOLE 40MG TABLET PO SCH (09:00)
[2019-01-05] MEDS ORDERED: APIXABAN 5 MG TABLET PO SCH (09:00)
[2019-01-05] MEDS ORDERED: METOPROLOL TAR 50 MG TAB PO SCH (09:00)
[2019-01-05] MEDS ORDERED: FUROSEMIDE 20 MG/ 2ML VIAL IV SCH (09:00)
--- NOTE | 2019-01-05 10:57 | RAD REPORT ---
EXAM DESCRIPTION: RAD - Chest Single View - 01/05/2019 7:13 am CLINICAL HISTORY: SOB, COUGH Chest pain. COMPARISON: Chest Single View dated 01/04/2019; Chest Pa And Lat (2 Views) dated 11/05/2018; Chest Sin gle View dated 09/03/2018; Chest Pa And Lat (2 Views) dated 08/10/2018 FINDINGS: Portable technique limits examination quality. Emphysematous changes are present throughout the lungs. The heart is normal in size. No displaced fra ctures. IMPRESSION: Prominent COPD.
[2019-01-05 12:40] VITALS: BP 115/62; TEMP 99
--- NOTE | 2019-01-05 13:33 | P.PN ---
Subjective Date of Service: 01/05/19 Chief Complaint: Acute COPD exacerbation/CHF exacerbation, acute diastolic dysfunction Patient seen and examined at bedside. Family at bedside. Chart reviewed and case discussed with nursing staff. Patient unable to complete sentence due to shortness of breath. Still seems to be in respiratory distress especially with exertion. Review of Systems 10-point ROS is otherwise unremarkable Physical Examination - Vital Signs Temperature: 99.0 F Blood Pressure: 115/62 Pulse: 96 Respirations: 28 Pulse Ox (%): 93 - Physical Exam General: Alert, Oriented x3, Mild distress, Moderate distress (Respiratory) Neck: Supple, JVD not distended Respiratory: Diminished, Crackles/rales, Expiratory wheezes, Other (Unable to complete sentences due to SOB) Cardiovascular: Normal S1 S2, Irregular heart rate/rhythm (Tachycardia, A- flutter) Gastrointestinal: Normal bowel sounds - Studies Laboratory Data (last 24 hrs) 01/04/19 16:00: PT 15.7 H, INR 1.35 01/04/19 16:00: WBC 9.9, Hgb 14.7, Hct 44.0, Plt Count 268 01/04/19 16:00: Sodium 139, Potassium 3.8, BUN 9, Creatinine 0.71, Glucose 97, Magnesium 2.3, Total Bilirubin 0.7, AST 10 L, ALT 20, Alkaline Phosphatase 89 Microbiology Data (last 24 hrs): 01/04/19 17:25 Nasopharnyx Influenza Type A Antigen Screen - Final 01/04/19 17:25 Nasopharnyx Influenza Type B Antigen Screen - Final Assessment And Plan - Current Problems (Diagnosis) (1) COPD with acute exacerbation Current Visit: Yes Status: Acute Plan: Likely secondary to a viral illness; No improvement in breathing. Continue with albuterol and Atrovent nebs Continue with IV steroids Repeat CXR with prominent COPD changes. (2) Acute diastolic CHF (congestive heart failure) Current Visit: Yes Status: Acute Plan: Continue with gentle diuresing Daily weights Strict I&Os Education regarding fluid restriction (3) Lung cancer Onset Date: 05/15/18 Current Visit: No Status: Chronic Qualifiers: Laterality: unspecified laterality Lung location: unspecified part of lung Qualified Code(s): C34.90 - Malignant neoplasm of unspecified part of unspecified bronchus or lung (4) COPD (chronic obstructive pulmonary disease) Onset Date: 05/15/18 Current Visit: No Status: Acute Qualifiers: COPD type: unspecified COPD Qualified Code(s): J44.9 - Chronic obstructive pulmonary disease, unspecified (5) New onset atrial flutter Onset Date: 05/15/18 Current Visit: No Status: Acute Plan: Continue with Lopressor and anticoagulation for AFib - Plan DVT prophylaxis: Eliquis GI prophylaxis: Protonix Diet: Heart healthy Disposition: pending symptomatic improvement. Possible DC home in the next 24- 48 hours pending clinical improvement.
[2019-01-05 14:32] VITALS: O2SAT 95
--- NOTE | 2019-01-05 18:00 | P.DS ---
Admission Date: 01/04/19 Discharge Date: 01/05/19 Disposition: AMA-LEFT AGAINST MEDICAL ADVIC Reason for Admission: Acute COPD exacerbation/CHF exacerbation, acute diastolic dysfunction - Problems (1) COPD with acute exacerbation Status: Acute (2) Acute diastolic CHF (congestive heart failure) Status: Acute (3) Lung cancer Onset Date: 05/15/18 Status: Chronic Qualifiers: Laterality: unspecified laterality Lung location: unspecified part of lung Qualified Code(s): C34.90 - Malignant neoplasm of unspecified part of unspecified bronchus or lung (4) COPD (chronic obstructive pulmonary disease) Onset Date: 05/15/18 Status: Acute Qualifiers: COPD type: unspecified COPD Qualified Code(s): J44.9 - Chronic obstructive pulmonary disease, unspecified (5) New onset atrial flutter Onset Date: 05/15/18 Status: Acute Brief History of Present Illness: Patient is a 78-year-old gentleman who came into the hospital with shortness of breath. Patient has had multiple admissions over the last few years with similar complaints. Patient was started on nebs, steroids, and antibiotics. Patient is clinically feeling somewhat better. Patient is still wheezing and coughing quite a bit. Patient also has some JVP distention. Patient's last echo did not reveal any decrease of ejection fraction. However, patient possibly has some diastolic dysfunction. Will go ahead and do some IV diuretics as well. We will monitor patient very closely. Hospital Course: Patient was admitted for COPD exacerbation along with acute diastolic heart failure with shortness of breath. He was started on breathing treatments, steroids and diuresis. He started improving though was still not back to baseline. He was still shortness of breath with exertion. I discussed with patient that he is not quite ready to go home yet as he was still tachypneic, dyspneic. He stated he would see if he wants to stay. He understood the risks of leaving AMA. He did sign the AMA form and unfortunately left AMA. Vital Signs/Physical Exam: Temp Pulse Resp BP Pulse Ox 99.0 F 96 H 28 H 115/62 93 01/05/19 13:35 01/05/19 13:35 01/05/19 13:35 01/05/19 13:35 01/05/19 13:35 Laboratory Data at Discharge: WBC 5.9 K/uL (4.3-10.9) D 01/05/19 05:43 Hgb 14.3 g/dL (13.6-17.9) 01/05/19 05:43 Hct 41.6 % (39.6-49.0) 01/05/19 05:43 Plt Count 301 K/uL (152-406) 01/05/19 05:43 PT 15.7 SECONDS (9.5-12.5) H 01/04/19 16:00 INR 1.35 01/04/19 16:00 Sodium 140 mmol/L (136-145) 01/05/19 05:43 Potassium 4.4 mmol/L (3.5-5.1) 01/05/19 05:43 BUN 11 mg/dL (7-18) 01/05/19 05:43 Creatinine 0.77 mg/dL (0.55-1.3) 01/05/19 05:43 Glucose 189 mg/dL (74-106) H 01/05/19 05:43 Phosphorus 2.6 mg/dL (2.5-4.9) 01/05/19 05:43 Magnesium 2.3 mg/dL (1.8-2.4) 01/04/19 16:00 Total Bilirubin 0.4 mg/dL (0.2-1.0) 01/05/19 05:43 AST 6 U/L (15-37) L 01/05/19 05:43 ALT 18 U/L (12-78) 01/05/19 05:43 Alkaline Phosphatase 84 U/L (45-117) 01/05/19 05:43 Home Medications: Apixaban [Eliquis] 5 mg PO BID #60 tablet 05/16/18 Budesonide/Formoterol Fumarate [Symbicort 160-4.5 Mcg Inhaler] 2 puff IH BID #1 hfa.aer.ad 05/16/18 Metoprolol Tartrate 50 mg PO BID #60 tablet 05/16/18 Pantoprazole [Protonix Tab*] 40 mg PO DAILY #30 tab 05/16/18 Albuterol Inhaler [Ventolin Inhaler*] 2 puff IH Q6H PRN 09/04/18 Tamsulosin [Flomax*] 0.4 mg PO DAILY 09/04/18 Albuterol Sulfate [Proair Hfa] 2 puff IH TID PRN 01/05/19 Tiotropium [place] [Spiriva Respimat] 2 puff IH DAILY 01/05/19
--- NOTE | 2019-01-07 09:22 | EKG ---
Test Date: 2019-01-04 Test Time: 21:20:03 Lab Manager: RT-O MEASUREMENT RESULTS: Intervals: Rate: 135 [place]: 168 QRSD: 112 QT: 294 QTc: 441 [place]: P: [place]: 168 QRS: 269 T: 56 INTERPRETIVE STATEMENTS: Sinus tachycardia Right bundle branch block Inferior infarct, age undetermined Abnormal ECG Compared to ECG 01/04/2019 16:08:42 Myocardial infarct finding now present Sinus rhythm no longer present Atrial premature complex(es) no longer present Left-axis deviation no longer present T-wave abnormality no longer present Electronically Signed On 01-07-19 09:21:47 CDT by Luiz Shirley
== END 2019-01-05 15:04 | disposition left against medical advice (07) ==
LOC: ER 15:32 → ERHOLD 18:01 → 2ND 19:39
PROVIDERS: ADMIT Family Medicine; ATTEND Hospitalist
DX: J44.1 Chronic obstructive pulmonary disease with (acute) exacerbation (principal); I50.31 Acute diastolic (congestive) heart failure; Z85.118 Personal history of other malignant neoplasm of bronchus and lung; Z85.51 Personal history of malignant neoplasm of bladder; Z86.73 Personal history of transient ischemic attack (TIA), and cerebral infarction without residual deficits
CPT/HCPCS: 96365; 96367; 93005 ×2; 85025 ×2; 80048; 36415; 83735; 84100; 85610; 80076; 83605; 81003; 84484; 80053; 83880; 87804 ×2; 71045 ×2; 94640; 96375; 99285; 96366; J1940; J3475; J2930; J2920 ×2; G0378 ×2

== ENCOUNTER 2019-01-10 13:54 | Emergency (ER) | payer OTHER, BC ==
--- OUTSIDE RECORDS SUMMARY | 2019-01-10 14:33 | XMS REPORT ---
[...] End Date Status Dosage System Date Symbicort [facility] 80186944288 160-4.5 MCG/ACT Active 2 puffs Inhalation Twice a day Pantoprazole ND 98802314534 40 Orally Once Active 1 tablet Sodium a day Apixaban [facility] 98173818107 5 Orally Twice Active 1 tab a day Ventolin HFA ND 69604780329 90 MCG/ACT Active 2 puffs Inhalation as needed every 6 hrs PRN Spiriva ND 85234871041 2.5 microgram Active 2 puffs Respimat Inhaled Once a day Apixaban [facility] [address]-16 5 MG Orally Active 1 tab Twice a day Metoprolol ND 20129549971 50 MG Orally Active 1 tablet Tartrate Twice a day with food Azithromycin ND 69740958551 250 MG Orally October Active 2 tablets Once a day 2018 on the first day, then 1 tablet daily for 4 days Pantoprazole [facility] 28644242450 40 MG Orally Active 1 tablet Sodium Once a day Results Name Result Date Reference Range Unit Abnormality Flag Chest Pa And Lat (2 Views) Summary Purpose eClinicalWorks Submission
--- OUTSIDE RECORDS SUMMARY | 2019-01-10 14:33 | XMS REPORT ---
[...] End Status Dosage System Date Date PredniSONE [facility] 64940058954 20 MG Orally Active 1 tablet Once a day Apixaban [facility] [address]-04 5 MG Orally Active 1 tab Twice a day Symbicort [facility] 01663455344 160-4.5 MCG/ACT Active 2 puffs Inhalation Twice a day Ventolin HFA [facility] 33570205360 90 MCG/ACT Active 2 puffs Inhalation as needed every 6 hrs PRN Pantoprazole [facility] 08672966654 40 MG Orally Active 1 tablet Sodium Once a day Apixaban ND 14754287663 5 Orally Twice Active 1 tab a day Pantoprazole [facility] 24932759808 40 Orally Once Active 1 tablet Sodium a day Metoprolol [facility] 66572407210 50 MG Orally Active 1 tablet Tartrate Twice a day with food Spiriva Respimat [facility] 84325066311 2.5 microgram Active 2 puffs Inhaled Once a day Results No Known Results Summary Purpose eClinicalWorks Submission
--- OUTSIDE RECORDS SUMMARY | 2019-01-10 14:33 | XMS REPORT ---
[...] End Status Dosage System Date Date Pantoprazole [facility] 67410680738 40 MG Orally Active 1 tablet Sodium Once a day Results No Known Results Summary Purpose eClinicalWorks Submission
--- OUTSIDE RECORDS SUMMARY | 2019-01-10 14:33 | XMS REPORT ---
[...] End Status Dosage System Date Date Symbicort [facility] 48887081781 160-4.5 MCG/ACT Active 2 puffs Inhalation Twice a day Pantoprazole ND 14113718214 40 Orally Once Active 1 tablet Sodium a day Pantoprazole [facility] 59238659308 40 MG Orally Active 1 tablet Sodium Once a day Ventolin HFA [facility] 67128696058 90 MCG/ACT Active 2 puffs Inhalation as needed every 6 hrs PRN Apixaban [facility] [address]-11 5 MG Orally Active 1 tab Twice a day Apixaban ND 71011579607 5 Orally Twice Active 1 tab a day Metoprolol ND 41871588337 50 MG Orally Active 1 tablet Tartrate Twice a day with food Spiriva Respimat ND 75482550702 2.5 microgram Active 2 puffs Inhaled Once a day Results No Known Results Summary Purpose eClinicalWorks Submission
--- OUTSIDE RECORDS SUMMARY | 2019-01-10 14:33 | XMS REPORT ---
[...] End Date Status Dosage System Date Spiriva [facility] 79031846417 2.5 microgram November Active 2 puffs Respimat Inhaled Once a 2018 day Symbicort ND 34511713611 160-4.5 MCG/ACT Jun 04December 31, Active 2 puffs Inhalation 2017 2018 Twice a day Ventolin HFA ND 48116254187 90 MCG/ACT Active 2 puffs Inhalation as needed every 6 hrs PRN Pantoprazole ND 84091410844 40 MG Orally Active 1 tablet Sodium Once a day Apixaban [facility] [address]-23 5 MG Orally Active 1 tab Twice a day Metoprolol ND 60016462453 50 MG Orally Active 1 tablet Tartrate Twice a day with food PredniSONE ND 62901477634 20 MG Orally Active 1 tablet Once a day Results No Known Results Summary Purpose eClinicalWorks Submission
[2019-01-10] MEDS ORDERED: NA CHLORIDE 0.9% 500 ML ONE (15:23)
[2019-01-10 15:42] LABS: Protime INR 1.27
[2019-01-10 15:43] LABS: Absolute Lymphocytes (CBC) 1.4 K/uL (0.7-4.9); Absolute Monocytes 1.1 K/uL (0.1-1.3); Absolute Neutrophil 6.8 K/uL (1.8-8.0); Basophils % 0.6 % (0-1.3); Eosinophils % 2.8 % (0-4.4); Hematocrit 41.9 % (39.6-49.0); Lymphocytes % 14.4 % (15.3-44.8); MPV 7.5 fL (7.6-11.3); Monocytes % 11.3 % (3.3-12.3); RBC Red Blood Cell Count 4.17 M/uL (4.33-5.43)
[2019-01-10 16:00] LABS: ALT/SGPT 20 U/L (12-78); AST/SGOT 15 U/L (15-37); Albumin 3.1 g/dL (3.4-5.0); Alkaline Phosphatase 71 U/L (45-117); BUN Blood Urea Nitrogen 13 mg/dL (7-18); Bicarbonate 32 mmol/L (21-32); Bilirubin Direct 0.2 mg/dL (0-0.2); Bilirubin Total 0.5 mg/dL (0.2-1.0); Glucose Level 112 mg/dL (74-106); Magnesium 2.3 mg/dL (1.8-2.4); NT PRO-BNP 136 pg/mL (<450); Potassium 4.3 mmol/L (3.5-5.1); Sodium Level 140 mmol/L (136-145); Troponin (Emerg Dept Use Only) < 0.02 ng/mL (0.0-0.045)
--- NOTE | 2019-01-10 16:09 | RAD REPORT ---
EXAM DESCRIPTION: RAD - Chest Single View - 01/10/2019 4:01 pm CLINICAL HISTORY: MALAISE Chest pain. COMPARISON: Chest Single View dated 01/05/2019; Chest Single View dated 01/04/2019; Chest Pa And Lat ( 2 Views) dated 11/05/2018; Chest Single View dated 09/03/2018 FINDINGS: Portable technique limits examination quality. Very prominent emphysematous changes are present throughout the lungs. The heart is normal in size. N o displaced fractures. IMPRESSION: Prominent COPD.
--- NOTE | 2019-01-10 17:05 | EDPHYS ---
Physician Documentation [facility] Name: Roly Clifton Age: 78 yrs Sex: Male : 1940 Arrival Date: 01/10/2019 Time: 13:58 Bed 15 Private MD: Shane Epstein ED Physician Bj Escobar HPI: 01/11 09:50 This 78 yrs old Male presents to ER via Ambulatory with complaints of Blood gs Pressure Problem. 09:50 The patient has experienced near-syncope. Onset: The symptoms/episode began/occurred gs gradually. Associated injury: The patient did not suffer any apparent associated injury. Associated signs and symptoms: Pertinent positives: shortness of breath, Pertinent negatives: ataxia, blurred vision, chest pain. The patient has experienced similar episodes in the past, a few times. The patient has been recently seen by a physician: Dr. hopkins. 09:50 says resolved back to baseline. gs Historical: - Allergies: 01/10 14:02 NKA; hj - PMHx: 14:02 Arrythmia; Bladder cancer; COPD; CVA; Lung Cancer; hj - PSHx: 14:02 Bladder tumor removal; hj - Social history:: The patient lives at home. ROS: 01/11 09:50 All other systems are negative. gs Exam: 09:50 Abdomen/GI: Inspection: abdomen appears normal. gs 09:50 Head/Face: Normocephalic, atraumatic. Eyes: Pupils equal round and reactive to light, extra-ocular motions intact. Lids and lashes normal. Conjunctiva and sclera are non-icteric and not injected. Cornea within normal limits. Periorbital areas with no swelling, redness, or edema. 09:50 ENT: Nares patent. No nasal discharge, no septal abnormalities noted. Tympanic membranes are normal and external auditory canals are clear. Oropharynx with no redness, swelling, or masses, exudates, or evidence of obstruction, uvula midline. Mucous membranes moist. Neck: Trachea midline, no thyromegaly or masses palpated, and no cervical lymphadenopathy. Supple, full range of motion without nuchal rigidity, or vertebral point tenderness. No Meningismus. Chest/axilla: Normal chest wall appearance and motion. Nontender with no deformity. No lesions are appreciated. Cardiovascular: Regular rate and rhythm with a normal S1 and S2. No gallops, murmurs, or rubs. Normal PMI, no JVD. No pulse deficits. Respiratory: Lungs have equal breath sounds bilaterally, clear to auscultation and percussion. No rales, rhonchi or wheezes noted. No increased work of breathing, no retractions or nasal flaring. Abdomen/GI: Soft, non-tender, with normal bowel sounds. No distension or tympany. No guarding or rebound. No evidence of tenderness throughout. Back: No spinal tenderness. No costovertebral tenderness. Full range of motion. Skin: Warm, dry with normal turgor. Normal color with no rashes, no lesions, and no evidence of cellulitis. MS/ Extremity: Pulses equal, no cyanosis. Neurovascular intact. Full, normal range of motion. Neuro: Awake and alert, GCS 15, oriented to person, place, time, and situation. Cranial nerves II-XII grossly intact. Motor strength 5/5 in all extremities. Sensory grossly intact. Cerebellar exam normal. Normal gait. 09:50 ECG was reviewed by the Attending Physician. Vital Signs: 01/10 14:02 BP 98 / 71; Pulse 66; Resp 18; Temp 99.3(TE); Pulse Ox 94% on R/A; Weight 81.65 kg; hj Height 6 ft. 3 in. (190.50 cm); Pain 0/10; 14:45 BP 117 / 73; Pulse 78; Resp 16; Pulse Ox 96% on R/A; sg 16:30 BP 145 / 97 Supine; Pulse 87; Resp 20; sg 16:35 BP 148 / 72 Sitting; Pulse 81; sg 16:40 BP 136 / 88 Standing; Pulse 88; sg 14:02 Body Mass Index 22.50 (81.65 kg, 190.50 cm) MDM: 15:03 Patient medically screened. 01/11 09:50 Differential Diagnosis: cardiac arrhythmia, drug effect, idiopathic syncope. Data reviewed: vital signs, nurses notes, lab test result(s), EKG, radiologic studies. Counseling: I had a detailed discussion with the patient and/or guardian regarding: the historical points, exam findings, and any diagnostic results supporting the discharge/admit diagnosis, the need for outpatient follow up. Counseling: I had a detailed discussion with the patient and/or guardian regarding: offered admission, pt chooses after understanding risks and benefits to be discharged and follow up with pcp. Response to treatment: the patient's symptoms have resolved after treatment, and as a result, I will discharge patient. 01/10 15:03 Order name: Basic Metabolic Panel 01/10 15:03 Order name: CBC with Diff 01/10 15:03 Order name: LFT's; Complete Time: 16:19 01/10 15:03 Order name: Magnesium; Complete Time: 16:19 01/10 15:03 Order name: NT PRO-BNP; Complete Time: 16:19 01/10 15:03 Order name: PT-INR; Complete Time: 16:19 01/10 15:03 Order name: Troponin (emerg Dept Use Only); Complete Time: 16:19 01/10 15:03 Order name: XRAY Chest (1 view); Complete Time: 16:19 gs 01/10 15:03 Order name: EKG; Complete Time: 15:04 01/10 15:03 Order name: Cardiac monitoring; Complete Time: 15:08 01/10 15:03 Order name: EKG - Nurse/Tech; Complete Time: 15:21 01/10 15:04 Order name: Basic Metabolic Panel; Complete Time: 16:19 EDMS 01/10 15:04 Order name: CBC with Automated Diff; Complete Time: 16:19 EDMS 01/10 15:03 Order name: IV Saline Lock; Complete Time: 15:20 01/10 15:03 Order name: Labs collected and sent; Complete Time: 15:21 01/10 15:03 Order name: O2 Per Protocol; Complete Time: 15: 01/10 15:03 Order name: O2 Sat Monitoring; Complete Time: 15: 01/10 16:20 Order name: Orthostatic Blood Pressure; Complete Time: 16:43 gs EC:50 Rate is 80 beats/min. Rhythm is regular. MD interval is normal. QRS interval is gs prolonged. No ST changes noted. Clinical impression: Abnormal EKG without significant change. Interpreted by me. Administered Medications: 01/10 15:27 Drug: NS 0.9% 500 ml Route: IV; Rate: bolus; Site: right forearm; sg 16:00 Follow up: Response: No adverse reaction; IV Status: Completed infusion sg Disposition: 01/10/19 17:04 Discharged to Home. Impression: Dehydration. - Condition is Stable. - Discharge Instructions: Dehydration, Adult, Near-Syncope. - Medication Reconciliation Form, Thank You Letter, Antibiotic Education, Prescription Opioid Use form. - Follow up: Private Physician; When: 1 - 2 days; Reason: Re-evaluation by your physician. Signatures: Dispatcher [employer] EDCristian Stinson RN RN sg Williams, Irene, RN RN iw Joaquin, Henry, RN RN Bj Escobar MD MD Corrections: (The following items were deleted from the chart) 17:10 17:04 01/10/2019 17:04 Discharged to Home. Impression: Dehydration. Condition is iw Stable. Forms are Medication Reconciliation Form, Thank You Letter, Antibiotic Education, Prescription Opioid Use. Follow up: Private Physician; When: 1 - 2 days; Reason: Re-evaluation by your physician. gs
--- NOTE | 2019-01-10 17:05 | ER ---
Nurse's Notes [facility] Name: Roly Clifton Age: 78 yrs Sex: Male : 1940 Arrival Date: 01/10/2019 Time: 13:58 Bed 15 Private MD: Shane Epstein Diagnosis: Dehydration Presentation: 01/10 14:00 Presenting complaint: Patient states: came from Dr. Shirley [facility], my blood pressure is hj low on the 80's; denies chest pain; reports SOB; reports dizziness;. Transition of care: patient was not received from another setting of care. Onset of symptoms. Risk Assessment: Do you want to hurt yourself or someone else? Patient reports no desire to harm self or others. Initial Sepsis Screen: Does the patient meet any 2 criteria? No. Patient's initial sepsis screen is negative. Does the patient have a suspected source of infection? No. Patient's initial sepsis screen is negative. Care prior to arrival: None. 14:00 Method Of Arrival: Ambulatory 14:00 Acuity: MASON 3 hj Historical: - Allergies: 14:02 NKA; hj - PMHx: 14:02 Arrythmia; Bladder cancer; COPD; CVA; Lung Cancer; hj - PSHx: 14:02 Bladder tumor removal; hj - Social history:: The patient lives at home. Screenin:20 Abuse screen: Denies threats or abuse. Denies injuries from another. Nutritional sg screening: No deficits noted. Tuberculosis screening: No symptoms or risk factors identified. Never had TB. Fall Risk None identified. Assessment: 14:20 General: Appears in no apparent distress. slender, well groomed, well developed, well sg nourished, Behavior is calm, cooperative, appropriate for age, Smells of cigarette smoke. Pain: Denies pain. Neuro: Level of Consciousness is awake, alert, obeys commands, Oriented to person, place, time, Facing Baster Jumpbasting are equal bilaterally Speech is normal, Facial symmetry appears normal. Cardiovascular: Capillary refill is brisk in bilateral fingers Patient's skin is warm and dry. Chest pain is denied. Respiratory: Airway is patent Respiratory effort is even, unlabored, Respiratory pattern is regular, symmetrical, Breath sounds are diminished in left posterior lower lobe and right posterior lower lobe. GI: Abdomen is round non-distended. : No signs and/or symptoms were reported regarding the genitourinary system. EENT: No signs and/or symptoms were reported regarding the EENT system. Derm: Skin is dry, Skin is dusky, Skin temperature is warm. Musculoskeletal: No signs and/or symptoms reported regarding the musculoskeletal system. Vital Signs: 14:02 BP 98 / 71; Pulse 66; Resp 18; Temp 99.3(TE); Pulse Ox 94% on R/A; Weight 81.65 kg; hj Height 6 ft. 3 in. (190.50 cm); Pain 0/10; 14:45 BP 117 / 73; Pulse 78; Resp 16; Pulse Ox 96% on R/A; sg 16:30 BP 145 / 97 Supine; Pulse 87; Resp 20; sg 16:35 BP 148 / 72 Sitting; Pulse 81; sg 16:40 BP 136 / 88 Standing; Pulse 88; sg 14:02 Body Mass Index 22.50 (81.65 kg, 190.50 cm) ED Course: 13:58 Patient arrived in ED. mr 13:58 Shane Epstein DO is Private Physician. mr 14:02 Triage completed. hj 14:04 Arm band placed on right wrist. hj 14:11 Bj Escobar MD is Attending Physician. gs 14:20 No provider procedures requiring assistance completed. sg 14:45 Cristian Murcia, RN is Primary Nurse. sg 15:15 Initial lab(s) drawn, by de, sent to lab. Inserted saline lock: 20 gauge in right dh3 forearm, using aseptic technique. Blood collected. 15:20 EKG done, by technology methodology consultant. reviewed by Bj Escobar MD. [facility] 16:01 XRAY Chest (1 view) In Process Unspecified. EDMS 16:01 X-ray completed. Portable x-ray completed in exam room. Patient tolerated procedure mh1 well. 17:20 IV discontinued, intact, bleeding controlled, No redness/swelling at site. Pressure sg dressing applied. Administered Medications: 15:27 Drug: NS 0.9% 500 ml Route: IV; Rate: bolus; Site: right forearm; sg 16:00 Follow up: Response: No adverse reaction; IV Status: Completed infusion sg Outcome: 17:04 Discharge ordered by . gs 17:05 Discharged to home ambulatory, with family. sg 17:05 Condition: good 17:05 Discharge instructions given to patient, copy writer, Instructed on discharge instructions, follow up and referral plans. safety practices, Demonstrated understanding of instructions, follow-up care. 17:10 Patient left the ED. Signatures: Dispatcher [employer] EDMS Cristian Murcia, RN BECKIE Selin Anderson Martha 1 Tresa Velasquez RN RN Robert Yates RN RN Jean Claude, Iva 3 Bj Escobar MD MD Adelita Calabrese 3 Corrections: (The following items were deleted from the chart) 14:04 14:02 Pulse 66bpm; Resp 18bpm; Pulse Ox 94% RA; Temp 99.3F Temporal; 81.65 kg; Height 6 hj ft. 3 in.; BMI: 22.5; Pain 0/10; hj
[2019-01-10 17:15] VITALS: TEMP 99.3
[2019-01-10 17:17] VITALS: O2SAT 96
[2019-01-10 17:26] VITALS: BP 136/88
--- NOTE | 2019-01-11 08:29 | EKG ---
Test Date: 2019-01-10 Test Time: 15:20:06 X Ray Examiner Of Aircraft: CHRISTINA MEASUREMENT RESULTS: Intervals: Rate: 80 VT: 170 QRSD: 114 QT: 382 QTc: 440 [place]: P: VT: 170 QRS: -58 T: 32 INTERPRETIVE STATEMENTS: Sinus rhythm with premature supraventricular complexes Left axis deviation Right bundle branch block Inferior infarct, age undetermined Abnormal ECG Compared to ECG 01/04/2019 21:20:03 Atrial premature complex(es) now present Left-axis deviation now present Sinus tachycardia no longer present Myocardial infarct finding still present Electronically Signed On 01-11-19 08:28:22 CDT by Luiz Shirley
== END 2019-01-10 17:10 | disposition home or self-care (01) ==
LOC: ER 13:54
DX: E86.0 Dehydration (principal); Z85.51 Personal history of malignant neoplasm of bladder
CPT/HCPCS: 36415; 71045; 80048; 80076; 83735; 83880; 84484; 85025; 85610; 93005; 96360; 99284

== ENCOUNTER 2019-04-04 21:21 | Emergency (ER) | payer OTHER, BC ==
--- OUTSIDE RECORDS SUMMARY | 2019-04-04 21:23 | XMS REPORT ---
[...] End Date Status Dosage System Date Spiriva [facility] 44878484876 2.5 microgram November Active 2 puffs Respimat Inhaled Once a 2018 day Symbicort ND 10285063410 160-4.5 MCG/ACT Jun 04December 31, Active 2 puffs Inhalation 2017 2018 Twice a day Ventolin HFA ND 05377675501 90 MCG/ACT Active 2 puffs Inhalation as needed every 6 hrs PRN Pantoprazole ND 89665006687 40 MG Orally Active 1 tablet Sodium Once a day Apixaban [facility] [address]-93 5 MG Orally Active 1 tab Twice a day Metoprolol ND 14168738099 50 MG Orally Active 1 tablet Tartrate Twice a day with food PredniSONE ND 88369605444 20 MG Orally Active 1 tablet Once a day Results No Known Results Summary Purpose eClinicalWorks Submission
--- OUTSIDE RECORDS SUMMARY | 2019-04-04 21:23 | XMS REPORT ---
[...] End Status Dosage System Date Date Symbicort [facility] 44282254340 160-4.5 MCG/ACT Active 2 puffs Inhalation Twice a day Pantoprazole ND 46148935035 40 Orally Once Active 1 tablet Sodium a day Pantoprazole [facility] 01939675789 40 MG Orally Active 1 tablet Sodium Once a day Ventolin HFA [facility] 33481123308 90 MCG/ACT Active 2 puffs Inhalation as needed every 6 hrs PRN Apixaban [facility] [address]-42 5 MG Orally Active 1 tab Twice a day Apixaban ND 17800185679 5 Orally Twice Active 1 tab a day Metoprolol ND 71006494423 50 MG Orally Active 1 tablet Tartrate Twice a day with food Spiriva Respimat ND 61573948940 2.5 microgram Active 2 puffs Inhaled Once a day Results No Known Results Summary Purpose eClinicalWorks Submission
--- OUTSIDE RECORDS SUMMARY | 2019-04-04 21:23 | XMS REPORT ---
[...] End Status Dosage System Date Date PredniSONE [facility] 80705464243 20 MG Orally Active 1 tablet Once a day Apixaban [facility] [address]-49 5 MG Orally Active 1 tab Twice a day Symbicort [facility] 27117115615 160-4.5 MCG/ACT Active 2 puffs Inhalation Twice a day Ventolin HFA [facility] 31030442349 90 MCG/ACT Active 2 puffs Inhalation as needed every 6 hrs PRN Pantoprazole [facility] 65948532990 40 MG Orally Active 1 tablet Sodium Once a day Apixaban ND 16349785201 5 Orally Twice Active 1 tab a day Pantoprazole [facility] 24346832425 40 Orally Once Active 1 tablet Sodium a day Metoprolol [facility] 18927711895 50 MG Orally Active 1 tablet Tartrate Twice a day with food Spiriva Respimat [facility] 34898578303 2.5 microgram Active 2 puffs Inhaled Once a day Results No Known Results Summary Purpose eClinicalWorks Submission
--- OUTSIDE RECORDS SUMMARY | 2019-04-04 21:23 | XMS REPORT ---
[...] End Status Dosage System Date Date Pantoprazole [facility] 07553596726 40 MG Orally Active 1 tablet Sodium Once a day Results No Known Results Summary Purpose eClinicalWorks Submission
--- OUTSIDE RECORDS SUMMARY | 2019-04-04 21:23 | XMS REPORT ---
[...] End Date Status Dosage System Date Symbicort [facility] 38866427125 160-4.5 MCG/ACT Active 2 puffs Inhalation Twice a day Pantoprazole ND 12397748588 40 Orally Once Active 1 tablet Sodium a day Apixaban [facility] 14815876594 5 Orally Twice Active 1 tab a day Ventolin HFA ND 94764202271 90 MCG/ACT Active 2 puffs Inhalation as needed every 6 hrs PRN Spiriva ND 63794965776 2.5 microgram Active 2 puffs Respimat Inhaled Once a day Apixaban [facility] [address]-65 5 MG Orally Active 1 tab Twice a day Metoprolol ND 73885526829 50 MG Orally Active 1 tablet Tartrate Twice a day with food Azithromycin ND 69118228870 250 MG Orally October Active 2 tablets Once a day 2018 on the first day, then 1 tablet daily for 4 days Pantoprazole [facility] 12750149747 40 MG Orally Active 1 tablet Sodium Once a day Results Name Result Date Reference Range Unit Abnormality Flag Chest Pa And Lat (2 Views) Summary Purpose eClinicalWorks Submission
--- NOTE | 2019-04-04 21:41 | EDPHYS ---
Physician Documentation [facility] Name: Roly Clifton Age: 78 yrs Sex: Male : 1940 Arrival Date: 04/04/2019 Time: 21:22 Bed 3 Private MD: ED Physician Rito Garcia HPI: 04/04 21:25 This 78 yrs old Male presents to ER via Unassigned with complaints of CPR. [facility] 21:25 Preceding the arrest, the patient was found down by family. The arrest occurred at [facility] home. Pre-hospital course: The arrest was not witnessed by others. Bystanders at the scene did not perform CPR. EMS care prior to arrival: initiation of ACLS, intubation was successfully performed, orally, oxygen, by BVM to assist ventilations. 100% by ET tube. ACLS details: Initial rhythm was asystole. The presenting rhythm is asystole. Airway: Ambu assist ventilation, oral intubation, Medications given by EMS prior to arrival - Epinephrine IV x 9 doses, Sodium Bicarb and Calicum Carbonate , Response to therapy: continued arrest. The patient has not experienced similar symptoms in the past. It is unknown whether or not the patient has recently seen a physician. of patient stated that he had been sleeping a lot more. About 8 pm went to go check on patient and found him not breathing appropriately. EMS called at that time. EMS stated that when they arrived on scene they found patient unresponsive, pulseless, and apneic. CPR with ACLS protocol immediately initiated. Brought to ED for continued care. No ROSC achieved throughout EMS care. Total time since ACLS began has been about 35 min . Historical: - Allergies: 21:47 NKA; ea - Home Meds: 21:47 Eliquis 5 mg Oral tab 1 tab 2 times per day [Active]; metoprolol tartrate 50 mg Oral ea tab 1 tab 2 times per day [Active]; pantoprazole 40 mg Oral TbEC 1 tab once daily [Active]; Spiriva Respimat 2.5 mcg/actuation inhalation mist 2 puffs once daily [Active]; Symbicort 160-4.5 mcg/actuation inhalation HFAA 2 puffs 2 times per day [Active]; tamsulosin 0.4 mg Oral cp24 1 cap once daily [Active]; Ventolin HFA 90 mcg/actuation Nebulizer HFAA 2 puffs every 6 hours [Active]; - PMHx: 21:47 Lung Cancer; CVA; COPD; Bladder cancer; Arrythmia; ea - PSHx: 21:47 Bladder tumor removal; ea - Immunization history:: Adult Immunizations unknown. - Social history:: Smoking status: unknown. - Ebola Screening: : Unable to complete screening because. ROS: 21:25 Unable to obtain ROS due to patient distress. jr8 Exam: 21:25 Head/Face: Normocephalic, atraumatic. Eyes: Pupils equal round with no response to jr8 light. Lids and lashes normal. Conjunctiva and sclera are non-icteric and not injected. Periorbital areas with no swelling, redness, or edema. Cardiovascular: Patient had no palpable pulses to the radial, carotid, or femoral regions. Respiratory: Patient with assisted ventolation via ET tube and BVM. Rate of 12 breath per minute. Coarse rales bilaterally but equal Abdomen/GI: Soft with no distenstion. No obvoius trauama [place] Coma Score: 21:25 Eye Response: none(1). Verbal Response: none(1). Motor Response: none(1). Modifying jr8 Factors: Intubated. Total: 3. MDM: 21:25 Patient medically screened. jr8 21:25 Data reviewed: vital signs, nurses notes. jr8 21:40 ED course: Patient evaluated. Had multiple rounds of epinephrine along with bicarb and jr8 calcium given in the field. Adequate vascular access established DATA EXAMINATION CLERK along with successful ET tube. Patient was still in Asystole with cardiac standstill on US. Time since ACLS began was 40 min. All that could be done to save patients life had been done and without ROSC. Time of called 21:21. Administered Medications: No medications were administered Disposition: 21:25 . jr8 04/05 06:58 Co-signature as Attending Physician, Rito Garcia MD Available for consultation at ps1 all times . Disposition: Patient pronounced on 04/04/19 21:21 by Adrián Marshall. Impression: Cardiac arrest. - Released to Home. Signatures: Adrián Marshall PA PA jr8 Brissa Asher RN RN ea Singer, Phillip, MD MD ps1 Corrections: (The following items were deleted from the chart) 04/04 23:21 21:40 04/04/2019 21:40 Patient pronounced on 04/04/2019 at 21:21 by Adrián Marshall. ea Impression: Cardiac arrest. Released to Home. jr8
--- NOTE | 2019-04-04 23:22 | ER ---
Nurse's Notes [facility] Name: Roly Clifton Age: 78 yrs Sex: Male : 1940 Arrival Date: 04/04/2019 Time: 21:22 Bed 3 Private MD: Diagnosis: Cardiac arrest Presentation: 04/04 21:15 Presenting complaint: EMS states: Pt last seen normal at 5 PM by , EMS reports pt ea was unresponsive at scene, CPR initiated 2024, pt was intubated \T\ 2053 ET tube 6.5, 23 \T\ teeth. EMS administered 9 round of Epi, 1 Bicarb and 1 calcium. Care prior to arrival: Assisted ventilation, CPR via thumper Medication(s) given: Epinephrin x 9, Bicarb x 1, calcium x 1 IO to right tibia. Compressions began prior to arrival. 21:15 Method Of Arrival: EMS: [facility] ea 21:15 Acuity: MASON 1 ea 21:15 Transition of care: patient was not received from another setting of care. Onset of ea symptoms was April 04, 2019. Risk Assessment: Do you want to hurt yourself or someone else? Unable to obtain. Initial Sepsis Screen: Does the patient meet any 2 criteria? Does the patient have a suspected source of infection?. Historical: - Allergies: 21:47 NKA; ea - Home Meds: 21:47 Eliquis 5 mg Oral tab 1 tab 2 times per day [Active]; metoprolol tartrate 50 mg Oral ea tab 1 tab 2 times per day [Active]; pantoprazole 40 mg Oral TbEC 1 tab once daily [Active]; Spiriva Respimat 2.5 mcg/actuation inhalation mist 2 puffs once daily [Active]; Symbicort 160-4.5 mcg/actuation inhalation HFAA 2 puffs 2 times per day [Active]; tamsulosin 0.4 mg Oral cp24 1 cap once daily [Active]; Ventolin HFA 90 mcg/actuation Nebulizer HFAA 2 puffs every 6 hours [Active]; - PMHx: 21:47 Lung Cancer; CVA; COPD; Bladder cancer; Arrythmia; ea - PSHx: 21:47 Bladder tumor removal; ea - Immunization history:: Adult Immunizations unknown. - Social history:: Smoking status: unknown. - Ebola Screening: : Unable to complete screening because. Assessment: 21:15 CPR assessment: unresponsive, intubated, Ambu ventilation, pale. Cardiac rhythm is ea asystole. 21:15 General: Arrived CPR in progress, pt unresponsive, skin pale and cold, chest ea compressions per thumper, pt intubated respirations assisted per bagging method. PD accompanied EMS, family is aware. Adrián Jewell, burak RN, Davina Rodriguez RN, Ephraim Irwin RN, Aristeo Christopher RN, Valerie R at bedside. ET tube in place, IO to right tibia in place, cardiac rhythm asystole. Dr. Garcia called time of 2120. PD notified writer. 22:20 Reassessment: Yvrose Clemons from [employer] contacted. Reference # [id number]. ea 22:59 Reassessment: Undertaker Abdirahman Temple [phone] at facility for transport of body to [facility]. [place] Coma Score: 21:25 Eye Response: none(1). Verbal Response: none(1). Motor Response: none(1). Modifying jr8 Factors: Intubated. Total: 3. ED Course: 21:15 Maintain EMS IV. Dressing intact. Site clean \T\ dry. Gauge \T\ site: IO to right tibia. ea 21:22 Patient arrived in ED. ds1 21:25 Adrián Marshall PA is PHCP. jr8 21:25 Rito Garcia MD is Attending Physician. jr8 21:40 Adrián Marshall PA is Pronouncing Provider. jr8 21:46 Triage completed. ea 22:11 Brissa Asher, BECKIE is Primary Nurse. ea Administered Medications: No medications were administered Outcome: 23:21 Patient left the ED. ea Signatures: Lanier, Kaitlin ds1 Adrián Marshall PA PA jr8 Brissa Asher RN RN richardson
--- NOTE | 2019-04-05 07:35 | EKG ---
Test Date: 2019-04-04 Test Time: 21:20:23 Form Maker Plaster: AER MEASUREMENT RESULTS: Intervals: Rate: 80 OK: QRSD: 16 QT: 198 QTc: 228 [place]: P: OK: QRS: 0 T: 30 INTERPRETIVE STATEMENTS: low voltage slow idioventricular rhythm Abnormal ECG Compared to ECG 01/10/2019 15:20:06 Significant changes have occurred Electronically Signed On 04-05-19 07:34:38 CDT by Luiz Shirley
== END 2019-04-04 23:21 | disposition expired ==
LOC: ER 21:21
DX: I46.9 Cardiac arrest, cause unspecified (principal); J44.9 Chronic obstructive pulmonary disease, unspecified; Z79.01 Long term (current) use of anticoagulants; Z85.51 Personal history of malignant neoplasm of bladder; Z85.118 Personal history of other malignant neoplasm of bronchus and lung; Z86.73 Personal history of transient ischemic attack (TIA), and cerebral infarction without residual deficits
CPT/HCPCS: 92950; 93005; 99285